=== PATIENT | male | born 1955 | race Caucasian/White ===

== ENCOUNTER 2018-08-18 18:23 | Inpatient (IN) | payer MEDICARE, BC ==
[~2018-08-18] VITALS: Ht 175.3 cm; Wt 65.4 kg
[2018-08-18 19:30] LABS: ALBUMIN 3.7 g/dL (3.4-5.0); CALCIUM 9.4 mg/dL (8.5-10.1); CREATININE 1.2 mg/dL (0.7-1.3); DIRECT BILIRUBIN 0.1 mg/dL (0.0-0.2); GFR 61.6; POTASSIUM 3.9 mmol/L (3.5-5.1); TOTAL BILIRUBIN 0.4 mg/dL (0.2-1.0); TOTAL PROTEIN 6.8 g/dL (6.4-8.2)
[2018-08-18 19:33] LABS: BASO # 0.1 x10^3/uL (0.0-0.2); BASO % 0 % (0-3); EOS # 0.3 x10^3/uL (0.0-0.7); EOS % 1 % (0-3); HEMATOCRIT 49.3 % (39.0-53.0); HEMOGLOBIN 16.7 g/dL (13.0-17.5); LYMPH # 41.3 x10^3/uL (1.0-4.8); LYMPH % 87 % (24-48); MEAN CORPUSCULAR HEMOGLOBIN 32 pg (25-35); MEAN CORPUSCULAR HGB CONC 34 g/dL (31-37); MEAN CORPUSCULAR VOLUME 94 fL (79-100); MONO # 0.8 x10^3/uL (0.0-1.1); MONO % 2 % (0-9); NEUT # 4.9 x10^3uL (1.8-7.7); NEUT % 10 % (31-73); PLATELET COUNT 143 x10^3/uL (140-400); RED BLOOD COUNT 5.24 x10^6/uL (4.30-5.70); RED CELL DISTRIBUTION WIDTH 15.3 % (11.5-14.5)
[2018-08-18 20:12] LABS: CLARITY,URINE HAZY; COLOR,URINE AMBER
[2018-08-18 20:13] LABS: BACTERIA,URINE 0 /HPF (0-FEW); BILIRUBIN,URINE NEG (NEG); GLUCOSE,URINE NEG (NEG); NITRITE,URINE NEG (NEG); RBC,URINE OCC /HPF (0-2); SQUAMOUS EPITHELIAL CELL,UR FEW /LPF; UROBILINOGEN,URINE 0.2 mg/dL (0.2 mg/dL); WBC,URINE 0 /HPF (0-4)
[2018-08-18 20:17] LABS: % ATYL 3 % (0-0); % LYMPHS 78 % (24-48); % MONOS 3 % (0-10); % SEGS 16 % (35-66)
[2018-08-18 20:25] LABS: ANISOCYTOSIS SLIGHT; PLT ESTIMATE ADEQUATE (ADEQUATE)
--- NOTE | 2018-08-18 21:33 | PHYS DOC ---
Past History Past Medical History: Bipolar, Dementia, Depression, Diabetes, GERD, High Cholesterol, Hypothyroid, Schizophrenia Past Surgical History: No Surgical History Alcohol Use: None Drug Use: None Adult General Chief Complaint Chief Complaint: PSYCH EVALUATION HPI HPI Patient is a 62-year-old male who presents from nursing facility for medical clearance. Patient has been accepted to [facility] and just needs blood work drawn for medical clearance. Patient currently denies any homicidal or suicidal ideations. He denies any chest pain or shortness of breath. Review of Systems Review of Systems Constitutional: Denies fever or chills [] Respiratory: Denies cough or shortness of breath [] Cardiovascular: No additional information not addressed in HPI [] GI: Denies abdominal pain, nausea, vomiting, bloody stools or diarrhea [] Neurologic: Denies headache, focal weakness or sensory changes [] All other systems were reviewed and found to be within normal limits, except as documented in this note. Allergies Allergies Allergies Coded Allergies Type Severity Reaction Last Updated Verified diclofenac Allergy Mild 08/18/18 Yes Physical Exam Physical Exam Constitutional: Well developed, well nourished, no acute distress, non-toxic appearance. [] HENT: Normocephalic, atraumatic, bilateral external ears normal, oropharynx moist, no oral exudates, nose normal. [] Eyes: PERRLA, EOMI, conjunctiva normal, no discharge. [] Neck: Normal range of motion, no tenderness, supple, no stridor. [] Cardiovascular: Regular rate and rhythm[] Lungs & Thorax: Bilateral breath sounds clear to auscultation [] Abdomen: Bowel sounds normal, soft, no tenderness. [] Skin: Warm, dry, no erythema, no rash. [] Extremities: No tenderness, no cyanosis, no clubbing, ROM intact, no edema. [] Neurologic: Alert and oriented X 3, no focal deficits noted. [] Current Patient Data Vital Signs Vital Signs Date Time Temp Pulse Resp B/P (MAP) Pulse Ox O2 Delivery O2 Flow Rate FiO2 08/18/18 18:56 98.2 84 18 97 Room Air Lab Results Laboratory Tests Test 08/18/18 18:44 08/18/18 19:47 White Blood Count 47.4 x10^3/uL (4.0-11.0) *H Red Blood Count 5.24 x10^6/uL (4.30-5.70) Hemoglobin 16.7 g/dL (13.0-17.5) Hematocrit 49.3 % (39.0-53.0) Mean Corpuscular Volume 94 fL (79-100) Mean Corpuscular Hemoglobin 32 pg (25-35) Mean Corpuscular Hemoglobin Concent 34 g/dL (31-37) Red Cell Distribution Width 15.3 % (11.5-14.5) H Platelet Count 143 x10^3/uL (140-400) Neutrophils (%) (Auto) 10 % (31-73) L Lymphocytes (%) (Auto) 87 % (24-48) H Monocytes (%) (Auto) 2 % (0-9) Eosinophils (%) (Auto) 1 % (0-3) Basophils (%) (Auto) 0 % (0-3) Neutrophils # (Auto) 4.9 x10^3uL (1.8-7.7) Lymphocytes # (Auto) 41.3 x10^3/uL (1.0-4.8) H Monocytes # (Auto) 0.8 x10^3/uL (0.0-1.1) Eosinophils # (Auto) 0.3 x10^3/uL (0.0-0.7) Basophils # (Auto) 0.1 x10^3/uL (0.0-0.2) Segmented Neutrophils % 16 % (35-66) L Lymphocytes % 78 % (24-48) H Atypical Lymphocytes % (Manual) 3 % (0-0) H Monocytes % 3 % (0-10) Platelet Estimate Adequate (ADEQUATE) Anisocytosis Slight Sodium Level 144 mmol/L (136-145) Potassium Level 3.9 mmol/L (3.5-5.1) Chloride Level 104 mmol/L (98-107) Carbon Dioxide Level 32 mmol/L (21-32) Anion Gap 8 (6-14) Blood Urea Nitrogen 18 mg/dL (8-26) Creatinine 1.2 mg/dL (0.7-1.3) Estimated GFR (Cockcroft-Gault) 61.6 Glucose Level 108 mg/dL (70-99) H Calcium Level 9.4 mg/dL (8.5-10.1) Total Bilirubin 0.4 mg/dL (0.2-1.0) Direct Bilirubin 0.1 mg/dL (0.0-0.2) Aspartate Amino Transferase (AST) 11 U/L (15-37) L Alanine Aminotransferase (ALT) 7 U/L (16-63) L Alkaline Phosphatase 74 U/L (46-116) Total Protein 6.8 g/dL (6.4-8.2) Albumin 3.7 g/dL (3.4-5.0) Ethyl Alcohol Level < 10 mg/dL (0-10) Urine Collection Type Unknown Urine Color Violet Urine Clarity Hazy Urine pH 6.0 Urine Specific [place] 1.015 Urine Protein Neg (NEG-TRACE) Urine Glucose (UA) Neg mg/dL (NEG) Urine Ketones (Stick) Neg mg/dL (NEG) Urine Blood Trace (NEG) Urine Nitrite Neg (NEG) Urine Bilirubin Neg (NEG) Urine Urobilinogen Dipstick 0.2 mg/dL (0.2 mg/dL) Urine Leukocyte Esterase Trace (NEG) Urine RBC Occ /HPF (0-2) Urine WBC 0 /HPF (0-4) Urine Squamous Epithelial Cells Few /LPF Urine Bacteria 0 /HPF (0-FEW) EKG EKG [] Radiology/Procedures Radiology/Procedures [] Course & Med Decision Making Course & Med Decision Making Pertinent Labs and Imaging studies reviewed. (See chart for details) [] Dragon Disclaimer Dragon Disclaimer This electronic medical record was generated, in whole or in part, using a voice recognition dictation system. Departure Departure: Impression: Primary Impression: Behavior disturbance Disposition: ADMITTED INPATIENT Admitting Physician: Other (Dr. Delvalle) Condition: STABLE Referrals: SHIKHA ROBERTSON DO (PCP) ARUN DE LOS SANTOS Jr., DO Aug 18, 2018 21:33
[2018-08-18 21:39] LABS: BARBITURATES NEG (NEG); BENZODIAZEPINES NEG (NEG); CANNABINOIDS NEG (NEG); COCAINE NEG (NEG); METHADONE NEG (NEG); OPIATES NEG (NEG); PHENCYCLIDINE NEG (NEG)
--- NOTE | 2018-08-18 21:39 | RAD ---
Indication:Elevated white blood count TECHNIQUE:Portable AP chest X-ray COMPARISON:None FINDINGS: Heart is normal in size. Patchy opacities are seen in the left lung base. Bilateral interstitial opacities. Blunting of the left costophrenic angle. No pneumothorax. Visualized bony thorax is within normal limits. IMPRESSION: Patchy opacities in the left lung base with trace pleural effusion may be secondary to pneumonia. Electronically signed by: Ziyad Fox DO (08/18/2018 9:36 PM) [facility]
[2018-08-18 21:40] LABS: AMPHETAMINE/METHAMPHETAMINE NEG (NEG)
[2018-08-18] MEDS ORDERED: MAG HYDROX/AL HYDROX/SIMETH 30 ML ORAL.SUSP PO PRN (23:15)
[2018-08-18] MEDS ORDERED: MAGNESIUM HYDROXIDE 2,400 MG/30 ML ORAL.SUSP. PO PRN (23:15)
[2018-08-18 23:18] VITALS: BP 117/84
[2018-08-18] MEDS ORDERED: ONDA4TAB12 PO (23:41)
[2018-08-18] MEDS ORDERED: IPRA3AMP29 NEB (23:41)
[2018-08-18] MEDS ORDERED: CETI10TA16 PO (23:41)
[2018-08-18] MEDS ORDERED: VITA200C7 PO (23:41)
[2018-08-18] MEDS ORDERED: COLE1TAB2 PO (23:41)
[2018-08-18] MEDS ORDERED: PYRI50CA PO (23:41)
[2018-08-18] MEDS ORDERED: FINA5TAB4 PO (23:41)
[2018-08-18] MEDS ORDERED: LEXAPRO5 MG PO (23:41)
[2018-08-18] MEDS ORDERED: ACET325T9 PO (23:41)
[2018-08-18] MEDS ORDERED: LOPE2CAP88 PO (23:41)
[2018-08-18] MEDS ORDERED: LEVO112T4 PO (23:41)
[2018-08-18] MEDS ORDERED: OMEP20TA8 PO (23:41)
[2018-08-18] MEDS ORDERED: SIMV40TA3 PO (23:41)
[2018-08-18] MEDS ORDERED: CARB1TAB2 PO (23:41)
[2018-08-18] MEDS ORDERED: TAMS0.4C97 PO (23:41)
[2018-08-18] MEDS ORDERED: GUAI237L83 PO (23:41)
[2018-08-18] MEDS ORDERED: LAMO150T2 PO (23:41)
[2018-08-18] MEDS ORDERED: OMEG-167 PO (23:41)
[2018-08-18] MEDS ORDERED: ALBU2.5V14 NEB (23:41)
[2018-08-18] MEDS ORDERED: MAGN400O7 PO (23:41)
[2018-08-18] MEDS ORDERED: ASCO500T3 PO (23:41)
[2018-08-18] MEDS ORDERED: ONDANSETRON ODT 4 MG TAB.RAPDIS PO PRN (23:45)
[2018-08-18] MEDS ORDERED: ALBUTEROL SULFATE 2.5 MG/3 ML NEBU. NEB PRN (23:45)
[2018-08-18] MEDS ORDERED: IPRATRPIUM/ALBUTEROL 0.5/2.5MG 3 ML NEBU. NEB PRN (23:45)
[2018-08-18] MEDS ORDERED: guaiFENesin DM 200MG/20MG 10 ML SYRUP PO PRN (23:45)
[2018-08-18] MEDS ORDERED: LOPERAMIDE 2 MG CAPSULE PO PRN (23:45)
[2018-08-19 05:31] VITALS: BP 125/83
[2018-08-19] MEDS: LEVOTHYROXINE 112 MCG TABLET PO SCH (05:59)
[2018-08-19 07:53] LABS: ALBUMIN 3.2 g/dL (3.4-5.0); ALBUMIN/GLOBULIN RATIO 1.2 (1.0-1.7); CALCIUM 8.9 mg/dL (8.5-10.1); CREATININE 1.1 mg/dL (0.7-1.3); GFR 68.1; MAGNESIUM 1.9 mg/dL (1.8-2.4); POTASSIUM 3.8 mmol/L (3.5-5.1); TOTAL BILIRUBIN 0.3 mg/dL (0.2-1.0); TOTAL PROTEIN 5.9 g/dL (6.4-8.2)
[2018-08-19] MEDS: PANTOPRAZOLE 40 MG TABLET. PO SCH (08:57)
[2018-08-19] MEDS: DIVALPROEX SODIUM 250 MG TABLET.DR. PO SCH (08:57)
[2018-08-19] MEDS: ASCORBIC ACID 500 MG TABLET PO SCH (08:57)
[2018-08-19] MEDS: TAMSULOSIN 0.4 MG CAP.ER.24H. PO SCH (08:57)
[2018-08-19] MEDS: FINASTERIDE 5 MG TABLET PO SCH (08:57)
[2018-08-19] MEDS: OMEGA-3 FATTY ACIDS/FISH OIL 1,000 MG CAPSULE. PO SCH (08:57)
[2018-08-19] MEDS: CITALOPRAM 10 MG TABLET. PO SCH (08:57)
[2018-08-19] MEDS: CETIRIZINE HCL 10 MG TABLET PO SCH (08:57)
[2018-08-19] MEDS: CARBIDOPA/LEVODOPA 25/100MG TABLET PO SCH ×3 (08:57→19:36)
[2018-08-19] MEDS ORDERED: lamoTRIgine 150 MG TABLET. PO SCH (09:00)
[2018-08-19] MEDS: lamoTRIgine 25 MG TABLET. PO SCH (09:26)
[2018-08-19] MEDS: VITAMIN E 200 UNIT CAPSULE. PO SCH (14:07)
[2018-08-19] MEDS: COLESTIPOL HCL 1 GM TABLET PO SCH ×2 (14:07→19:36)
[2018-08-19] MEDS: PYRIDOXINE 50 MG TABLET. PO SCH (14:07)
[2018-08-19 14:11] LABS: THYROID STIM HORMONE (TSH) 2.073 uIU/mL (0.358-3.740)
[2018-08-19 16:11] LABS: THYROXINE 7.7 ug/dL (4.5-12.0)
[2018-08-19] MEDS: CHOLECALCIFEROL (VITAMIN D3) 50,000 UNIT CAPSULE PO SCH (19:36)
[2018-08-19] MEDS: SIMVASTATIN 40 MG TABLET. PO SCH (19:36)
--- NOTE | 2018-08-19 22:33 | PDOC ---
Exam Note: Julian Note: Please also refer to the separate dictated note~for this date of service dictated separately. Discussed the patient with Nursing staff reviewed the chart.~Reviewed interim history and current functioning. Reviewed vital signs,~ Labs/ Radiology~and current medications noted below. Continue current treatment with the changes noted in the dictated addendum note Assessment: Vital Signs: Vital Signs Date Time Temp Pulse Resp B/P (MAP) Pulse Ox O2 Delivery O2 Flow Rate FiO2 08/19/18 05:31 97.1 61 20 125/83 (97) 92 Room Air Labs: Laboratory Tests Test 08/19/18 06:56 Sodium Level 146 mmol/L (136-145) H Potassium Level 3.8 mmol/L (3.5-5.1) Chloride Level 109 mmol/L (98-107) H Carbon Dioxide Level 29 mmol/L (21-32) Anion Gap 8 (6-14) Blood Urea Nitrogen 17 mg/dL (8-26) Creatinine 1.1 mg/dL (0.7-1.3) Estimated GFR (Cockcroft-Gault) 68.1 BUN/Creatinine Ratio 15 (6-20) Glucose Level 86 mg/dL (70-99) Calcium Level 8.9 mg/dL (8.5-10.1) Magnesium Level 1.9 mg/dL (1.8-2.4) Total Bilirubin 0.3 mg/dL (0.2-1.0) Aspartate Amino Transferase (AST) 9 U/L (15-37) L Alanine Aminotransferase (ALT) 17 U/L (16-63) Alkaline Phosphatase 59 U/L (46-116) Total Protein 5.9 g/dL (6.4-8.2) L Albumin 3.2 g/dL (3.4-5.0) L Albumin/Globulin Ratio 1.2 (1.0-1.7) Triglycerides Level 83 mg/dL (0-150) Cholesterol Level 142 mg/dL (0-200) LDL Cholesterol, Calculated 92 mg/dL (0-100) VLDL Cholesterol, Calculated 16 mg/dL (0-40) Non-HDL Cholesterol Calculated 108 mg/dL (0-129) HDL Cholesterol 34 mg/dL (40-60) L Cholesterol/HDL Ratio 4.0 Thyroid Stimulating Hormone (TSH) 2.073 uIU/mL (0.358-3.740) Current Medications: Meds: Current Medications Acetaminophen (Tylenol) 650 mg PRN Q6HRS PRN PO PAIN / TEMP; Start 08/18/18 at 23:15 Al Hydroxide/Mg Hydroxide (Mylanta Plus Xs) 15 ml PRN AFTMEALHC PRN PO DYSPEPSIA; Start 08/18/18 at 23:15 Magnesium Hydroxide (Milk Of Magnesia) 2,400 mg PRN QHS PRN PO CONSTIPATION; Start 08/18/18 at 23:15 Carbidopa/Levodopa (Sinemet 25/100) 1 tab TID PO Last administered on 08/19/18 19:36; Start 08/19/18 at 09:00 Lamotrigine (LaMICtal) 150 mg DAILY PO ; Start 08/19/18 at 09:00; Stop 08/19/18 at 09:14; Status DC Citalopram Hydrobromide (CeleXA) 10 mg DAILY PO Last administered on 08/19/18 08:57; Start 08/19/18 at 09:00 Ascorbic Acid (Vitamin C) 500 mg DAILY PO Last administered on 08/19/18 08:57; Start 08/19/18 at 09:00 Colestipol HCl (Colestid) 1 gm BID PO Last administered on 08/19/18 19:36; Start 08/19/18 at 09:00 Albuterol/ Ipratropium (Duoneb) 3 ml PRN TID PRN NEB SHORTNESS OF BREATH; Start 08/18/18 at 23:45 Levothyroxine Sodium (Synthroid) 112 mcg DAILY06 PO Last administered on 05:59; Start 08/19/18 at 06:00 Simvastatin (Zocor) 40 mg HS PO Last administered on 08/19/18 19:36; Start 08/19 at 21:00 Tamsulosin HCl (Flomax) 0.4 mg DAILY PO Last administered on 08/19/18 08:57; Start 08/19/18 at 09:00 Albuterol Sulfate (Ventolin) 2.5 mg PRN Q4HRS PRN NEB SHORTNESS OF BREATH; Start 08/18/18 at 23:45 Cetirizine HCl (ZyrTEC) 10 mg DAILY PO Last administered on 08/19/18 08:57; Start 08/19/18 at 09:00 Finasteride (Proscar) 5 mg DAILY PO Last administered on 08/19/18 08:57; Start 08/19/18 at 09:00 Guaifenesin (Robitussin Dm) 10 ml PRN Q4HRS PRN PO COUGH; Start 08/18/18 at 23: 45 Loperamide HCl (Imodium) 2 mg PRN Q6HRS PRN PO DIARRHEA; Start 08/18/18 at 23:45 Fish Oil (Fish Oil) 1,000 mg DAILY PO Last administered on 08/19/18 08:57; Start 08/19/18 at 09:00 Pantoprazole Sodium (Protonix) 40 mg DAILYAC PO Last administered on 08/19/18 08:57; Start 08/19/18 at 07:30 Ondansetron HCl (Zofran Odt) 4 mg PRN Q6HRS PRN PO NAUSEA/VOMITING; Start at 23:45 Pyridoxine HCl (Vitamin B-6) 50 mg DAILY PO Last administered on 08/19/18 14:07 ; Start 08/19/18 at 09:00 Vitamin E 200 unit DAILY PO Last administered on 08/19/18 14:07; Start 08/19/18 at 09:00 Divalproex Sodium (Depakote) 1,500 mg DAILY PO Last administered on 08/19/18 08 :57; Start 08/19/18 at 09:00 Lamotrigine (LaMICtal) 100 mg DAILY PO ; Start 08/20/18 at 09:00 Lamotrigine (LaMICtal) 50 mg DAILY PO Last administered on 08/19/18 09:26; Start 08/19/18 at 09:15 Vitamin D (Vitamin D3) 50,000 unit WEEKLY PO Last administered on 08/19/18 19: 36; Start 08/19/18 at 19:30 Active Scripts Active Reported Vitamin E (Vitamin E Acetate) 200 Unit Capsule 200 Unit PO DAILY Ascorbic Acid 500 Mg Tablet 500 Mg PO DAILY Vitamin B-6 (Pyridoxine Hcl) 50 Mg Capsule 50 Mg PO DAILY Tylenol (Acetaminophen) 325 Mg Tablet 650 Mg PO PRN Q4HRS PRN Flomax (Tamsulosin Hcl) 0.4 Mg Cap.er.24h 0.4 Mg PO DAILY Simvastatin 40 Mg Tablet 40 Mg PO HS Robitussin Cough-Chest Dm Liq (Guaifenesin/Dextromethorphan) 237 Ml Liquid 10 Ml PO PRN Q4HRS PRN Ondansetron Odt (Ondansetron) 4 Mg Tab.rapdis 4 Mg PO PRN Q6HRS PRN Omeprazole 20 Mg Tablet.dr 20 Mg PO DAILY Milk Of Magnesia (Magnesium Hydroxide) 400 Mg/5 Ml Oral.susp 400 Mg PO PRN DAILY PRN Lexapro (Escitalopram Oxalate) 5 Mg Tablet 5 Mg PO DAILY Levothyroxine Sodium 112 Mcg Tablet 112 Mcg PO DAILYAC Lamotrigine 150 Mg Tablet 150 Mg PO DAILY Duoneb 0.5-3(2.5) Mg/3 Ml (Albuterol/Ipratropium) 3 Ml Ampul.neb 3 Mg NEB PRN TID PRN Imodium A-D (Loperamide HCl) 2 Mg Capsule 2 Mg PO PRN Q6HRS PRN Fish Oil 1,200 mg Softgel ([place]-3S/Dha/Epa/Fish Oil) 1 Each Capsule.dr 1 Each PO DAILY Finasteride 5 Mg Tablet 5 Mg PO DAILY Colestipol Hcl 1 Gm Tablet 1 Gm PO BID Cetirizine Hcl 10 Mg Tablet 10 Mg PO DAILY Sinemet 25-100 Mg Tablet (Carbidopa/Levodopa) 1 Each Tablet 1 Each PO TID Albuterol Sulfate Conc Neb Soln (Albuterol Sulfate) 2.5 Mg/0.5 Ml Vial.neb 2.5 Mg NEB PRN Q4HRS PRN I have reviewed the current psychotropics carefully including drug interactions. Risk benefit ratio favors no change other than as noted in my dictated progress note. ALONDRA BARNES MD Aug 19, 2018 22:33
[2018-08-19 23:11] LABS: HEMOGLOBIN A1C 5.3 % (4.8-5.6)
[2018-08-20] MEDS: LEVOTHYROXINE 112 MCG TABLET PO SCH (05:31)
[2018-08-20 06:02] VITALS: BP 108/76
[2018-08-20] MEDS: ASCORBIC ACID 500 MG TABLET PO SCH (08:22)
[2018-08-20] MEDS: FINASTERIDE 5 MG TABLET PO SCH (08:22)
[2018-08-20] MEDS: VITAMIN E 200 UNIT CAPSULE. PO SCH (08:23)
[2018-08-20] MEDS: PANTOPRAZOLE 40 MG TABLET. PO SCH (08:23)
[2018-08-20] MEDS: CARBIDOPA/LEVODOPA 25/100MG TABLET PO SCH ×3 (08:23→19:01)
[2018-08-20] MEDS: DIVALPROEX SODIUM 250 MG TABLET.DR. PO SCH (08:23)
[2018-08-20] MEDS: CETIRIZINE HCL 10 MG TABLET PO SCH (08:23)
[2018-08-20] MEDS: lamoTRIgine 25 MG TABLET. PO SCH (08:23)
[2018-08-20] MEDS: OMEGA-3 FATTY ACIDS/FISH OIL 1,000 MG CAPSULE. PO SCH (08:23)
[2018-08-20] MEDS: TAMSULOSIN 0.4 MG CAP.ER.24H. PO SCH (08:23)
[2018-08-20] MEDS: CITALOPRAM 10 MG TABLET. PO SCH (08:23)
[2018-08-20] MEDS: PYRIDOXINE 50 MG TABLET. PO SCH (08:28)
[2018-08-20] MEDS: COLESTIPOL HCL 1 GM TABLET PO SCH ×2 (08:28→19:01)
[2018-08-20] MEDS: lamoTRIgine 100 MG TABLET. PO SCH (08:28)
[2018-08-20 16:48] VITALS: BP 117/79
[2018-08-20] MEDS: SIMVASTATIN 40 MG TABLET. PO SCH (19:01)
[2018-08-21] MEDS: LEVOTHYROXINE 112 MCG TABLET PO SCH (05:37)
[2018-08-21 05:39] VITALS: BP 120/64
[2018-08-21] MEDS: OMEGA-3 FATTY ACIDS/FISH OIL 1,000 MG CAPSULE. PO SCH (07:38)
[2018-08-21] MEDS: ASCORBIC ACID 500 MG TABLET PO SCH (07:38)
[2018-08-21] MEDS: lamoTRIgine 25 MG TABLET. PO SCH (07:38)
[2018-08-21] MEDS: CARBIDOPA/LEVODOPA 25/100MG TABLET PO SCH ×3 (07:38→19:55)
[2018-08-21] MEDS: TAMSULOSIN 0.4 MG CAP.ER.24H. PO SCH (07:39)
[2018-08-21] MEDS: DIVALPROEX SODIUM 250 MG TABLET.DR. PO SCH (07:39)
[2018-08-21] MEDS: PANTOPRAZOLE 40 MG TABLET. PO SCH (07:39)
[2018-08-21] MEDS: CITALOPRAM 10 MG TABLET. PO SCH (07:39)
[2018-08-21] MEDS: lamoTRIgine 100 MG TABLET. PO SCH (07:39)
[2018-08-21] MEDS: CETIRIZINE HCL 10 MG TABLET PO SCH (07:39)
[2018-08-21] MEDS: COLESTIPOL HCL 1 GM TABLET PO SCH ×2 (07:39→19:57)
[2018-08-21] MEDS: FINASTERIDE 5 MG TABLET PO SCH (07:39)
[2018-08-21] MEDS: VITAMIN E 200 UNIT CAPSULE. PO SCH ×2 (07:40→19:55)
[2018-08-21] MEDS: PYRIDOXINE 50 MG TABLET. PO SCH (07:40)
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
--- NOTE | 2018-08-21 09:42 | PDOC ---
Exam Note: Julian Note: Late entry for DOS 08/20/2018. Please also refer to the separate dictated note~ for this date of service dictated separately.~Patient seen individually. Discussed the patient with Nursing staff reviewed the chart.~Reviewed interim history and current functioning. Reviewed vital signs,~Labs/ Radiology~and current medications noted below. Continue current treatment with the changes noted in the dictated addendum note Assessment: Vital Signs: VS - Last 72 Hours, by Label Date Time Temp Pulse Resp B/P (MAP) Pulse Ox O2 Delivery O2 Flow Rate FiO2 08/21/18 05:39 98.5 71 18 120/64 (82) 95 08/20/18 16:48 98.4 93 18 117/79 (92) 93 Room Air 08/20/18 06:02 98.6 70 18 108/76 (87) 98 08/19/18 05:31 97.1 61 20 125/83 (97) 92 Room Air 08/18/18 23:18 98.1 65 18 117/84 (95) 94 Room Air 08/18/18 18:56 98.2 84 18 97 Room Air Vital Signs Date Time Temp Pulse Resp B/P (MAP) Pulse Ox O2 Delivery O2 Flow Rate FiO2 08/21/18 05:39 98.5 71 18 120/64 (82) 95 08/20/18 16:48 Room Air I&O Intake and Output 08/21/18 07:00 Intake Total 1440 ml Balance 1440 ml Intake Oral 1440 ml # Voids 2 # Bowel Movements 2 Current Medications: Meds: Current Medications Acetaminophen (Tylenol) 650 mg PRN Q6HRS PRN PO PAIN / TEMP; Start 08/18/18 at 23:15 Al Hydroxide/Mg Hydroxide (Mylanta Plus Xs) 15 ml PRN AFTMEALHC PRN PO DYSPEPSIA; Start 08/18/18 at 23:15 Magnesium Hydroxide (Milk Of Magnesia) 2,400 mg PRN QHS PRN PO CONSTIPATION; Start 08/18/18 at 23:15 Carbidopa/Levodopa (Sinemet 25/100) 1 tab TID PO Last administered on 08/21/18at 07:38; Start 08/19/18 at 09:00 Lamotrigine (LaMICtal) 150 mg DAILY PO ; Start 08/19/18 at 09:00; Stop 08/19/18 at 09:14; Status DC Citalopram Hydrobromide (CeleXA) 10 mg DAILY PO Last administered on 08/21/18 07:39; Start 08/19/18 at 09:00 Ascorbic Acid (Vitamin C) 500 mg DAILY PO Last administered on 08/21/18 07:38; Start 08/19/18 at 09:00 Colestipol HCl (Colestid) 1 gm BID PO Last administered on 08/21/18 07:39; Start 08/19/18 at 09:00 Albuterol/ Ipratropium (Duoneb) 3 ml PRN TID PRN NEB SHORTNESS OF BREATH; Start 08/18/18 at 23:45 Levothyroxine Sodium (Synthroid) 112 mcg DAILY06 PO Last administered on 05:37; Start 08/19/18 at 06:00 Simvastatin (Zocor) 40 mg HS PO Last administered on 08/20/18 19:01; Start 08/19 at 21:00 Tamsulosin HCl (Flomax) 0.4 mg DAILY PO Last administered on 08/21/18 07:39; Start 08/19/18 at 09:00 Albuterol Sulfate (Ventolin) 2.5 mg PRN Q4HRS PRN NEB SHORTNESS OF BREATH; Start 08/18/18 at 23:45 Cetirizine HCl (ZyrTEC) 10 mg DAILY PO Last administered on 08/21/18 07:39; Start 08/19/18 at 09:00 Finasteride (Proscar) 5 mg DAILY PO Last administered on 08/21/18 07:39; Start 08/19/18 at 09:00 Guaifenesin (Robitussin Dm) 10 ml PRN Q4HRS PRN PO COUGH; Start 08/18/18 at 23: 45 Loperamide HCl (Imodium) 2 mg PRN Q6HRS PRN PO DIARRHEA; Start 08/18/18 at 23:45 Fish Oil (Fish Oil) 1,000 mg DAILY PO Last administered on 08/21/18 07:38; Start 08/19/18 at 09:00 Pantoprazole Sodium (Protonix) 40 mg DAILYAC PO Last administered on 08/21/18 07:39; Start 08/19/18 at 07:30 Ondansetron HCl (Zofran Odt) 4 mg PRN Q6HRS PRN PO NAUSEA/VOMITING; Start at 23:45 Pyridoxine HCl (Vitamin B-6) 50 mg DAILY PO Last administered on 08/21/18 07:40 ; Start 08/19/18 at 09:00 Vitamin E 200 unit DAILY PO Last administered on 08/21/18 07:40; Start 08/19/18 at 09:00 Divalproex Sodium (Depakote) 1,500 mg DAILY PO Last administered on 08/21/18 07 :39; Start 08/19/18 at 09:00 Lamotrigine (LaMICtal) 100 mg DAILY PO Last administered on 08/21/18 07:39; Start 08/20/18 at 09:00 Lamotrigine (LaMICtal) 50 mg DAILY PO Last administered on 08/21/18 07:38; Start 08/19/18 at 09:15 Vitamin D (Vitamin D3) 50,000 unit WEEKLY PO Last administered on 08/19/18at 19: 36; Start 08/19/18 at 19:30 Active Scripts Active Reported Vitamin E (Vitamin E Acetate) 200 Unit Capsule 200 Unit PO DAILY Ascorbic Acid 500 Mg Tablet 500 Mg PO DAILY Vitamin B-6 (Pyridoxine Hcl) 50 Mg Capsule 50 Mg PO DAILY Tylenol (Acetaminophen) 325 Mg Tablet 650 Mg PO PRN Q4HRS PRN Flomax (Tamsulosin Hcl) 0.4 Mg Cap.er.24h 0.4 Mg PO DAILY Simvastatin 40 Mg Tablet 40 Mg PO HS Robitussin Cough-Chest Dm Liq (Guaifenesin/Dextromethorphan) 237 Ml Liquid 10 Ml PO PRN Q4HRS PRN Ondansetron Odt (Ondansetron) 4 Mg Tab.rapdis 4 Mg PO PRN Q6HRS PRN Omeprazole 20 Mg Tablet.dr 20 Mg PO DAILY Milk Of Magnesia (Magnesium Hydroxide) 400 Mg/5 Ml Oral.susp 400 Mg PO PRN DAILY PRN Lexapro (Escitalopram Oxalate) 5 Mg Tablet 5 Mg PO DAILY Levothyroxine Sodium 112 Mcg Tablet 112 Mcg PO DAILYAC Lamotrigine 150 Mg Tablet 150 Mg PO DAILY Duoneb 0.5-3(2.5) Mg/3 Ml (Albuterol/Ipratropium) 3 Ml Ampul.neb 3 Mg NEB PRN TID PRN Imodium A-D (Loperamide HCl) 2 Mg Capsule 2 Mg PO PRN Q6HRS PRN Fish Oil 1,200 mg Softgel ([place]-3S/Dha/Epa/Fish Oil) 1 Each Capsule.dr 1 Each PO DAILY Finasteride 5 Mg Tablet 5 Mg PO DAILY Colestipol Hcl 1 Gm Tablet 1 Gm PO BID Cetirizine Hcl 10 Mg Tablet 10 Mg PO DAILY Sinemet 25-100 Mg Tablet (Carbidopa/Levodopa) 1 Each Tablet 1 Each PO TID Albuterol Sulfate Conc Neb Soln (Albuterol Sulfate) 2.5 Mg/0.5 Ml Vial.neb 2.5 Mg NEB PRN Q4HRS PRN I have reviewed the current psychotropics carefully including drug interactions. Risk benefit ratio favors no change other than as noted in my dictated progress note. Diagnosis: Problems: (1) Anxiety disorder (2) Bipolar affective, mixed, sev w/ psych (3) Major depressive disorder, recurrent episode (4) Impulse control disorder (5) Lewy body dementia with behavioral disturbance ALONDRA BARNES MD Aug 21, 2018 09:42
[2018-08-21 16:34] VITALS: BP 148/87
[2018-08-21] MEDS: SIMVASTATIN 40 MG TABLET. PO SCH (19:54)
--- NOTE | 2018-08-21 22:51 | PDOC ---
Exam Note: Julian Note: Please also refer to the separate dictated note~for this date of service dictated separately.~Patient seen individually. Discussed the patient with Nursing staff reviewed the chart.~Reviewed interim history and current functioning. Reviewed vital signs,~Labs/ Radiology~and current medications noted below. Continue current treatment with the changes noted in the dictated addendum note Assessment: Vital Signs: Vital Signs Date Time Temp Pulse Resp B/P (MAP) Pulse Ox O2 Delivery O2 Flow Rate FiO2 08/21/18 16:34 97.4 87 20 148/87 (107) 99 Room Air I&O Intake and Output 08/21/18 07:00 Intake Total 1440 ml Balance 1440 ml Intake Oral 1440 ml # Voids 2 # Bowel Movements 2 Current Medications: Meds: Current Medications Acetaminophen (Tylenol) 650 mg PRN Q6HRS PRN PO PAIN / TEMP; Start 08/18/18 at 23:15 Al Hydroxide/Mg Hydroxide (Mylanta Plus Xs) 15 ml PRN AFTMEALHC PRN PO DYSPEPSIA; Start 08/18/18 at 23:15 Magnesium Hydroxide (Milk Of Magnesia) 2,400 mg PRN QHS PRN PO CONSTIPATION; Start 08/18/18 at 23:15 Carbidopa/Levodopa (Sinemet 25/100) 1 tab TID PO Last administered on 08/21/18at 19:55; Start 08/19/18 at 09:00 Lamotrigine (LaMICtal) 150 mg DAILY PO ; Start 08/19/18 at 09:00; Stop 08/19/18 at 09:14; Status DC Citalopram Hydrobromide (CeleXA) 10 mg DAILY PO Last administered on 08/21/18at 07:39; Start 08/19/18 at 09:00 Ascorbic Acid (Vitamin C) 500 mg DAILY PO Last administered on 08/21/18at 07:38; Start 08/19/18 at 09:00 Colestipol HCl (Colestid) 1 gm BID PO Last administered on 08/21/18at 19:57; Start 08/19/18 at 09:00 Albuterol/ Ipratropium (Duoneb) 3 ml PRN TID PRN NEB SHORTNESS OF BREATH; Start 08/18/18 at 23:45 Levothyroxine Sodium (Synthroid) 112 mcg DAILY06 PO Last administered on 05:37; Start 08/19/18 at 06:00 Simvastatin (Zocor) 40 mg HS PO Last administered on 08/21/18 19:54; Start 08/19 at 21:00 Tamsulosin HCl (Flomax) 0.4 mg DAILY PO Last administered on 08/21/18 07:39; Start 08/19/18 at 09:00 Albuterol Sulfate (Ventolin) 2.5 mg PRN Q4HRS PRN NEB SHORTNESS OF BREATH; Start 08/18/18 at 23:45 Cetirizine HCl (ZyrTEC) 10 mg DAILY PO Last administered on 08/21/18 07:39; Start 08/19/18 at 09:00 Finasteride (Proscar) 5 mg DAILY PO Last administered on 08/21/18 07:39; Start 08/19/18 at 09:00 Guaifenesin (Robitussin Dm) 10 ml PRN Q4HRS PRN PO COUGH; Start 08/18/18 at 23: 45 Loperamide HCl (Imodium) 2 mg PRN Q6HRS PRN PO DIARRHEA; Start 08/18/18 at 23:45 Fish Oil (Fish Oil) 1,000 mg DAILY PO Last administered on 08/21/18 07:38; Start 08/19/18 at 09:00 Pantoprazole Sodium (Protonix) 40 mg DAILYAC PO Last administered on 08/21/18 07:39; Start 08/19/18 at 07:30 Ondansetron HCl (Zofran Odt) 4 mg PRN Q6HRS PRN PO NAUSEA/VOMITING; Start at 23:45 Pyridoxine HCl (Vitamin B-6) 50 mg DAILY PO Last administered on 08/21/18 07:40 ; Start 08/19/18 at 09:00 Vitamin E 200 unit DAILY PO Last administered on 08/21/18 07:40; Start 08/19/18 at 09:00 Divalproex Sodium (Depakote) 1,500 mg DAILY PO Last administered on 08/21/18 07 :39; Start 08/19/18 at 09:00 Lamotrigine (LaMICtal) 100 mg DAILY PO Last administered on 4/7/19at 07:39; Start 08/20/18 at 09:00 Lamotrigine (LaMICtal) 50 mg DAILY PO Last administered on 08/21/18at 07:38; Start 08/19/18 at 09:15 Vitamin D (Vitamin D3) 50,000 unit WEEKLY PO Last administered on 08/19/18at 19: 36; Start 08/19/18 at 19:30 Active Scripts Active Reported Vitamin E (Vitamin E Acetate) 200 Unit Capsule 200 Unit PO DAILY Ascorbic Acid 500 Mg Tablet 500 Mg PO DAILY Vitamin B-6 (Pyridoxine Hcl) 50 Mg Capsule 50 Mg PO DAILY Tylenol (Acetaminophen) 325 Mg Tablet 650 Mg PO PRN Q4HRS PRN Flomax (Tamsulosin Hcl) 0.4 Mg Cap.er.24h 0.4 Mg PO DAILY Simvastatin 40 Mg Tablet 40 Mg PO HS Robitussin Cough-Chest Dm Liq (Guaifenesin/Dextromethorphan) 237 Ml Liquid 10 Ml PO PRN Q4HRS PRN Ondansetron Odt (Ondansetron) 4 Mg Tab.rapdis 4 Mg PO PRN Q6HRS PRN Omeprazole 20 Mg Tablet.dr 20 Mg PO DAILY Milk Of Magnesia (Magnesium Hydroxide) 400 Mg/5 Ml Oral.susp 400 Mg PO PRN DAILY PRN Lexapro (Escitalopram Oxalate) 5 Mg Tablet 5 Mg PO DAILY Levothyroxine Sodium 112 Mcg Tablet 112 Mcg PO DAILYAC Lamotrigine 150 Mg Tablet 150 Mg PO DAILY Duoneb 0.5-3(2.5) Mg/3 Ml (Albuterol/Ipratropium) 3 Ml Ampul.neb 3 Mg NEB PRN TID PRN Imodium A-D (Loperamide HCl) 2 Mg Capsule 2 Mg PO PRN Q6HRS PRN Fish Oil 1,200 mg Softgel ([place]-3S/Dha/Epa/Fish Oil) 1 Each Capsule.dr 1 Each PO DAILY Finasteride 5 Mg Tablet 5 Mg PO DAILY Colestipol Hcl 1 Gm Tablet 1 Gm PO BID Cetirizine Hcl 10 Mg Tablet 10 Mg PO DAILY Sinemet 25-100 Mg Tablet (Carbidopa/Levodopa) 1 Each Tablet 1 Each PO TID Albuterol Sulfate Conc Neb Soln (Albuterol Sulfate) 2.5 Mg/0.5 Ml Vial.neb 2.5 Mg NEB PRN Q4HRS PRN I have reviewed the current psychotropics carefully including drug interactions. Risk benefit ratio favors no change other than as noted in my dictated progress note. Diagnosis: Problems: (1) Anxiety disorder (2) Bipolar affective, mixed, sev w/ psych (3) Major depressive disorder, recurrent episode (4) Impulse control disorder (5) Lewy body dementia with behavioral disturbance ALONDRA BARNES MD Aug 21, 2018 22:51
[2018-08-22 05:32] VITALS: BP 114/77
[2018-08-22] MEDS: LEVOTHYROXINE 112 MCG TABLET PO SCH (05:33)
--- NOTE | 2018-08-22 06:55 | CONS ---
DATE OF CONSULTATION: 08/19/2018 REASON FOR CONSULTATION: Medical management. HISTORY OF PRESENT ILLNESS: The patient is a 62-year-old male patient, a resident at [facility], who was admitted on account of suicidal ideation, stating he would shoot himself with a gun or overdose, hit another resident, threatened resident, depressed, all this in a background of Lewy body dementia with delusion, depression, bipolar. PAST MEDICAL HISTORY: Significant for hypothyroidism, benign prostatic hypertrophy, Parkinson's disease, gastroesophageal reflux disease and hyperlipidemia. PAST PSYCHIATRIC HISTORY: Significant for bipolar disorder, dementia and depression. ALLERGIES: HE IS ALLERGIC TO DICLOFENAC. MEDICATIONS: He is currently on following medications: He is on cetirizine 10 mg once a day, ipratropium bromide, albuterol sulfate for DuoNeb in 3 mL by nebulizer 3 times a day, albuterol sulfate 2.5 mg in 0.5 mL via nebulizer every 4 hours, Flomax 0.4 mg once a day, colestipol 1 gram p.o. b.i.d., simvastatin 40 mg at bedtime, omega-3 1200 mg p.o. daily, acetaminophen 650 mg every 4 hours, lamotrigine 150 mg daily, escitalopram oxalate 5 mg daily, carbidopa/levodopa for Sinemet 25/100 p.o. t.i.d. He is on Robitussin-DM 10 mL every 4 hours, loperamide 2 mg every 6 hours, milk of magnesia 30 mL p.o. daily p.r.n. for constipation, ondansetron 4 mg every 6 hours, omeprazole 20 mg once a day, levothyroxine sodium 112 mcg once a day, pyridoxine 50 mg once a day, ascorbic acid 500 mg once a day, vitamin E 200 units p.o. daily, finasteride 5 mg daily. FAMILY HISTORY: Positive for premature coronary artery disease in his father's side. SOCIAL HISTORY: He is single, never , has no children. He does not smoke or drink alcohol. 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 REVIEW OF SYSTEMS: As per history of present illness. PHYSICAL EXAMINATION GENERAL: When I examined him, he looked well and was clearly in no apparent respiratory distress. No pallor, jaundice, cyanosis, or thyromegaly. No jugular venous distension. No lower limb edema. VITAL SIGNS: His heart rate was 61, blood pressure was 125/83, temperature was 97.1, respiratory rate 20, and oxygen saturation was 92%. HEAD, EYES, EARS, NOSE AND THROAT: Showed normocephalic, atraumatic. NECK: Supple. HEART: Showed normal first and second heart sounds. No gallop, murmur. CHEST: Clear to auscultation. No crepitation or rhonchi. ABDOMEN: Distended, soft, nontender. NEUROLOGIC: He is awake, alert, responding appropriately. All cranial nerves intact. EXTREMITIES: He moves extremities without difficulty. He has hammertoes. He is mostly wheelchair bound. LABORATORY DATA: His lab work showed white cell count 47,400, hemoglobin 16.7, hematocrit 49.3, MCV 94 and platelet count of 143,000 with a manual differential showed 10% polymorphs, 87% lymphocytes and 2% monocytes. His chemistry showed a serum sodium of 144, potassium 3.9, chloride 104, bicarbonate 32, anion gap of 8, BUN 18, creatinine 1.2, estimated GFR 61 mL/minute. His glucose was 108, calcium was 9.4. Total bilirubin, AST, ALT, alkaline phosphatase were normal. Total protein 6.8, albumin 3.7. His serum iron 47, TIBC 340, iron saturation 14%. His total bilirubin, AST, ALT, alkaline phosphatase were normal. Total protein 5.9, albumin was 3.2. His TSH, total T4 and total T3 are normal. His triglycerides were 83, total cholesterol was 142, LDL cholesterol was 92, VLDL was 16, and HDL cholesterol at 34 and ratio was 4. Urinalysis was essentially unremarkable and toxic screen was negative. His treponema pallidum antibody was nonreactive. He did have a chest x-ray, which showed patchy opacity in the left lung base with trace pleural effusion, may be secondary to pneumonia. ASSESSMENT AND PLAN: The patient is hemodynamically stable, has no fever. Denied any cough or chest pain. His lab work showed that he has 25-hydroxy vitamin D is low, so we will replenish that. I will contact the psychologist experimental/oncologist perhaps tomorrow to basically discuss the case, as he has markedly elevated lymphocyte indicating he probably has chronic lymphatic leukemia. Thank you, Dr. Livingston for allowing me to participate in the care of this patient. NAHOMI CHOI MD DR: Mike JOB#: [id number] / [id number]
[2018-08-22 08:23] LABS: BASO % 0 % (0-3); EOS # 0.4 x10^3/uL (0.0-0.7); EOS % 1 % (0-3); HEMATOCRIT 47.8 % (39.0-53.0); HEMOGLOBIN 15.7 g/dL (13.0-17.5); LYMPH # 33.2 x10^3/uL (1.0-4.8); LYMPH % 87 % (24-48); MEAN CORPUSCULAR HEMOGLOBIN 31 pg (25-35); MEAN CORPUSCULAR HGB CONC 33 g/dL (31-37); MEAN CORPUSCULAR VOLUME 95 fL (79-100); MONO # 0.9 x10^3/uL (0.0-1.1); MONO % 2 % (0-9); NEUT # 3.6 x10^3uL (1.8-7.7); NEUT % 9 % (31-73); PLATELET COUNT 133 x10^3/uL (140-400); RED BLOOD COUNT 5.02 x10^6/uL (4.30-5.70); RED CELL DISTRIBUTION WIDTH 15.1 % (11.5-14.5); WHITE BLOOD COUNT 38.1 x10^3/uL (4.0-11.0)
[2018-08-22 08:33] LABS: ALBUMIN 3.3 g/dL (3.4-5.0); ALBUMIN/GLOBULIN RATIO 1.1 (1.0-1.7); CALCIUM 9.2 mg/dL (8.5-10.1); CREATININE 1.1 mg/dL (0.7-1.3); GFR 68.1; POTASSIUM 4.5 mmol/L (3.5-5.1); TOTAL BILIRUBIN 0.4 mg/dL (0.2-1.0); TOTAL PROTEIN 6.2 g/dL (6.4-8.2)
[2018-08-22 08:54] LABS: VAL ACID 51 mcg/mL (50-100)
[2018-08-22] MEDS: PANTOPRAZOLE 40 MG TABLET. PO SCH (09:16)
[2018-08-22] MEDS: VITAMIN E 200 UNIT CAPSULE. PO SCH ×2 (09:16→20:34)
[2018-08-22] MEDS: CITALOPRAM 10 MG TABLET. PO SCH (09:16)
[2018-08-22] MEDS: DIVALPROEX SODIUM 250 MG TABLET.DR. PO SCH (09:16)
[2018-08-22] MEDS: OMEGA-3 FATTY ACIDS/FISH OIL 1,000 MG CAPSULE. PO SCH (09:16)
[2018-08-22] MEDS: COLESTIPOL HCL 1 GM TABLET PO SCH ×2 (09:16→20:34)
[2018-08-22] MEDS: TAMSULOSIN 0.4 MG CAP.ER.24H. PO SCH (09:17)
[2018-08-22] MEDS: lamoTRIgine 25 MG TABLET. PO SCH (09:17)
[2018-08-22] MEDS: CETIRIZINE HCL 10 MG TABLET PO SCH (09:17)
[2018-08-22] MEDS: PYRIDOXINE 50 MG TABLET. PO SCH (09:17)
[2018-08-22] MEDS: lamoTRIgine 100 MG TABLET. PO SCH (09:17)
[2018-08-22] MEDS: CARBIDOPA/LEVODOPA 25/100MG TABLET PO SCH ×3 (09:17→20:33)
[2018-08-22] MEDS: FINASTERIDE 5 MG TABLET PO SCH (09:17)
[2018-08-22] MEDS: ASCORBIC ACID 500 MG TABLET PO SCH (09:17)
[2018-08-22 10:45] LABS: % LYMPHS 91 % (24-48); % MONOS 2 % (0-10); % SEGS 7 % (35-66); PLT ESTIMATE DECREASED (ADEQUATE)
[2018-08-22 10:46] LABS: SMUDGE CELLS PRESENT
[2018-08-22 16:13] VITALS: BP 128/83
[2018-08-22] MEDS: LITHIUM CARBONATE 300 MG TABLET PO SCH (20:33)
[2018-08-22] MEDS: SIMVASTATIN 40 MG TABLET. PO SCH (20:33)
--- NOTE | 2018-08-22 22:39 | PDOC ---
Exam Note: Julian Note: Please also refer to the separate dictated note~for this date of service dictated separately.~Patient seen individually. Discussed the patient with Nursing staff reviewed the chart.~Reviewed interim history and current functioning. Reviewed vital signs,~Labs/ Radiology~and current medications noted below. Continue current treatment with the changes noted in the dictated addendum note Assessment: Vital Signs: Vital Signs Date Time Temp Pulse Resp B/P (MAP) Pulse Ox O2 Delivery O2 Flow Rate FiO2 08/22/18 16:13 98.3 91 20 128/83 (98) 93 08/21/18 16:34 Room Air I&O Intake and Output 08/22/18 06:59 Intake Total 1080 ml Balance 1080 ml Intake Oral 1080 ml Labs: Laboratory Tests Test 08/22/18 07:23 White Blood Count 38.1 x10^3/uL (4.0-11.0) H Red Blood Count 5.02 x10^6/uL (4.30-5.70) Hemoglobin 15.7 g/dL (13.0-17.5) Hematocrit 47.8 % (39.0-53.0) Mean Corpuscular Volume 95 fL (79-100) Mean Corpuscular Hemoglobin 31 pg (25-35) Mean Corpuscular Hemoglobin Concent 33 g/dL (31-37) Red Cell Distribution Width 15.1 % (11.5-14.5) H Platelet Count 133 x10^3/uL (140-400) L Neutrophils (%) (Auto) 9 % (31-73) L Lymphocytes (%) (Auto) 87 % (24-48) H Monocytes (%) (Auto) 2 % (0-9) Eosinophils (%) (Auto) 1 % (0-3) Basophils (%) (Auto) 0 % (0-3) Neutrophils # (Auto) 3.6 x10^3uL (1.8-7.7) Lymphocytes # (Auto) 33.2 x10^3/uL (1.0-4.8) H Monocytes # (Auto) 0.9 x10^3/uL (0.0-1.1) Eosinophils # (Auto) 0.4 x10^3/uL (0.0-0.7) Basophils # (Auto) 0.0 x10^3/uL (0.0-0.2) Segmented Neutrophils % 7 % (35-66) L Lymphocytes % 91 % (24-48) H Monocytes % 2 % (0-10) Smudge Cells Present Platelet Estimate Decreased (ADEQUATE) Sodium Level 148 mmol/L (136-145) H Potassium Level 4.5 mmol/L (3.5-5.1) Chloride Level 110 mmol/L (98-107) H Carbon Dioxide Level 31 mmol/L (21-32) Anion Gap 7 (6-14) Blood Urea Nitrogen 22 mg/dL (8-26) Creatinine 1.1 mg/dL (0.7-1.3) Estimated GFR (Cockcroft-Gault) 68.1 BUN/Creatinine Ratio 20 (6-20) Glucose Level 85 mg/dL (70-99) Calcium Level 9.2 mg/dL (8.5-10.1) Total Bilirubin 0.4 mg/dL (0.2-1.0) Aspartate Amino Transferase (AST) 10 U/L (15-37) L Alanine Aminotransferase (ALT) 17 U/L (16-63) Alkaline Phosphatase 63 U/L (46-116) Total Protein 6.2 g/dL (6.4-8.2) L Albumin 3.3 g/dL (3.4-5.0) L Albumin/Globulin Ratio 1.1 (1.0-1.7) Valproic Acid Level 51 mcg/mL (50-100) Valproic Acid Last Dose Date 08/21/18 Valproic Acid Last Dose Time 2100 Current Medications: Meds: Current Medications Acetaminophen (Tylenol) 650 mg PRN Q6HRS PRN PO PAIN / TEMP; Start 08/18/18 at 23:15 Al Hydroxide/Mg Hydroxide (Mylanta Plus Xs) 15 ml PRN AFTMEALHC PRN PO DYSPEPSIA; Start 08/18/18 at 23:15 Magnesium Hydroxide (Milk Of Magnesia) 2,400 mg PRN QHS PRN PO CONSTIPATION; Start 08/18/18 at 23:15 Carbidopa/Levodopa (Sinemet 25/100) 1 tab TID PO Last administered on 08/22/18at 20:33; Start 08/19/18 at 09:00 Lamotrigine (LaMICtal) 150 mg DAILY PO ; Start 08/19/18 at 09:00; Stop 08/19/18 at 09:14; Status DC Citalopram Hydrobromide (CeleXA) 10 mg DAILY PO Last administered on 08/22/18 09:16; Start 08/19/18 at 09:00 Ascorbic Acid (Vitamin C) 500 mg DAILY PO Last administered on 08/22/18 09:17; Start 08/19/18 at 09:00 Colestipol HCl (Colestid) 1 gm BID PO Last administered on 08/22/18 20:34; Start 08/19/18 at 09:00 Albuterol/ Ipratropium (Duoneb) 3 ml PRN TID PRN NEB SHORTNESS OF BREATH; Start 08/18/18 at 23:45 Levothyroxine Sodium (Synthroid) 112 mcg DAILY06 PO Last administered on 05:33; Start 08/19/18 at 06:00 Simvastatin (Zocor) 40 mg HS PO Last administered on 08/22/18 20:33; Start 08/19 at 21:00 Tamsulosin HCl (Flomax) 0.4 mg DAILY PO Last administered on 08/22/18 09:17; Start 08/19/18 at 09:00 Albuterol Sulfate (Ventolin) 2.5 mg PRN Q4HRS PRN NEB SHORTNESS OF BREATH; Start 08/18/18 at 23:45 Cetirizine HCl (ZyrTEC) 10 mg DAILY PO Last administered on 08/22/18 09:17; Start 08/19/18 at 09:00 Finasteride (Proscar) 5 mg DAILY PO Last administered on 08/22/18 09:17; Start 08/19/18 at 09:00 Guaifenesin (Robitussin Dm) 10 ml PRN Q4HRS PRN PO COUGH; Start 08/18/18 at 23: 45 Loperamide HCl (Imodium) 2 mg PRN Q6HRS PRN PO DIARRHEA; Start 08/18/18 at 23:45 Fish Oil (Fish Oil) 1,000 mg DAILY PO Last administered on 08/22/18 09:16; Start 08/19/18 at 09:00 Pantoprazole Sodium (Protonix) 40 mg DAILYAC PO Last administered on 08/22/18 09:16; Start 08/19/18 at 07:30 Ondansetron HCl (Zofran Odt) 4 mg PRN Q6HRS PRN PO NAUSEA/VOMITING; Start at 23:45 Pyridoxine HCl (Vitamin B-6) 50 mg DAILY PO Last administered on 08/22/18 09:17 ; Start 08/19/18 at 09:00 Vitamin E 200 unit DAILY PO Last administered on 08/22/18 09:16; Start 08/19/18 at 09:00 Divalproex Sodium (Depakote) 1,500 mg DAILY PO Last administered on 08/22/18 09 :16; Start 08/19/18 at 09:00 Lamotrigine (LaMICtal) 100 mg DAILY PO Last administered on 08/22/18 09:17; Start 08/20/18 at 09:00 Lamotrigine (LaMICtal) 50 mg DAILY PO Last administered on 08/22/18 09:17; Start 08/19/18 at 09:15 Vitamin D (Vitamin D3) 50,000 unit WEEKLY PO Last administered on 08/19/18 19: 36; Start 08/19/18 at 19:30 [place] Carbonate 300 mg HS PO Last administered on 08/22/18at 20:33; Start at 21:00 Active Scripts Active Reported Vitamin E (Vitamin E Acetate) 200 Unit Capsule 200 Unit PO DAILY Ascorbic Acid 500 Mg Tablet 500 Mg PO DAILY Vitamin B-6 (Pyridoxine Hcl) 50 Mg Capsule 50 Mg PO DAILY Tylenol (Acetaminophen) 325 Mg Tablet 650 Mg PO PRN Q4HRS PRN Flomax (Tamsulosin Hcl) 0.4 Mg Cap.er.24h 0.4 Mg PO DAILY Simvastatin 40 Mg Tablet 40 Mg PO HS Robitussin Cough-Chest Dm Liq (Guaifenesin/Dextromethorphan) 237 Ml Liquid 10 Ml PO PRN Q4HRS PRN Ondansetron Odt (Ondansetron) 4 Mg Tab.rapdis 4 Mg PO PRN Q6HRS PRN Omeprazole 20 Mg Tablet.dr 20 Mg PO DAILY Milk Of Magnesia (Magnesium Hydroxide) 400 Mg/5 Ml Oral.susp 400 Mg PO PRN DAILY PRN Lexapro (Escitalopram Oxalate) 5 Mg Tablet 5 Mg PO DAILY Levothyroxine Sodium 112 Mcg Tablet 112 Mcg PO DAILYAC Lamotrigine 150 Mg Tablet 150 Mg PO DAILY Duoneb 0.5-3(2.5) Mg/3 Ml (Albuterol/Ipratropium) 3 Ml Ampul.neb 3 Mg NEB PRN TID PRN Imodium A-D (Loperamide HCl) 2 Mg Capsule 2 Mg PO PRN Q6HRS PRN Fish Oil 1,200 mg Softgel ([place]-3S/Dha/Epa/Fish Oil) 1 Each Capsule.dr 1 Each PO DAILY Finasteride 5 Mg Tablet 5 Mg PO DAILY Colestipol Hcl 1 Gm Tablet 1 Gm PO BID Cetirizine Hcl 10 Mg Tablet 10 Mg PO DAILY Sinemet 25-100 Mg Tablet (Carbidopa/Levodopa) 1 Each Tablet 1 Each PO TID Albuterol Sulfate Conc Neb Soln (Albuterol Sulfate) 2.5 Mg/0.5 Ml Vial.neb 2.5 Mg NEB PRN Q4HRS PRN I have reviewed the current psychotropics carefully including drug interactions. Risk benefit ratio favors no change other than as noted in my dictated progress note. Diagnosis: Problems: (1) Anxiety disorder (2) Bipolar affective, mixed, sev w/ psych (3) Major depressive disorder, recurrent episode (4) Impulse control disorder (5) Lewy body dementia with behavioral disturbance ALONDRA BARNES MD Aug 22, 2018 22:39
--- NOTE | 2018-08-23 05:56 | PN ---
DATE: 08/20/2018 PSYCHIATRIC PROGRESS NOTE This late entry for 08/20/2018 covers elements not covered in my initial note. SUBJECTIVE: I met with the patient in the evening. Overall, the patient remains somewhat anxious at times, impulsive, but not aggressive. He admits to feeling depressed at times. We discussed at some length his past treatments and he feels he did best on lithium and is unsure why this was stopped. REVIEW OF SYSTEMS: Ambulation impaired, in wheelchair. No CV, , pulmonary, eye system symptoms on review. MENTAL STATUS EXAM: Oriented to himself and situation. Speech is coherent, abstraction fair, computation impaired, language function intact, attention span short. Mood and affect remains somewhat anxious, labile at times. LABORATORY DATA: Reviewed. IMPRESSION: Bipolar 1 disorder, mixed with psychotic features, Lewy body dementia, early anxiety disorder, unspecified. PLAN: Continue current psychotropics. We will inquire from the family about why the lithium was discontinued and use this further for mood stabilization along with Depakote. MAN Ling BARNES MD DR: MANISH/jaleesa JOB#: [id number] / [id number]
--- NOTE | 2018-08-23 05:58 | PN ---
DATE: 08/21/2018 PSYCHIATRIC PROGRESS NOTE This late entry for 08/21/2018 covers elements not covered in my initial note. SUBJECTIVE: I met with the patient in the evening. The patient slept 7-1/2 hours previous night. He remains somewhat impulsive, sexually inappropriate at times, but redirects. REVIEW OF SYSTEMS: Ambulation impaired, in wheelchair. No CV, , pulmonary, eye system symptoms on review. MENTAL STATUS EXAM: The patient is reasonably oriented. Speech is coherent, has some latency. Abstraction fair, computation impaired, language function intact, attention span short. Mood and affect somewhat anxious, labile at times. LABORATORY DATA: Reviewed. IMPRESSION: Unchanged from initial note. PLAN: No change from initial note. MAN Ling BARNES MD DR: MANISH/jaleesa JOB#: [id number] / [id number]
[2018-08-23 06:01] VITALS: BP 146/91
[2018-08-23] MEDS: LEVOTHYROXINE 112 MCG TABLET PO SCH (06:11)
[2018-08-23] MEDS: OMEGA-3 FATTY ACIDS/FISH OIL 1,000 MG CAPSULE. PO SCH (08:53)
[2018-08-23] MEDS: PANTOPRAZOLE 40 MG TABLET. PO SCH (08:53)
[2018-08-23] MEDS: TAMSULOSIN 0.4 MG CAP.ER.24H. PO SCH (08:54)
[2018-08-23] MEDS: CITALOPRAM 10 MG TABLET. PO SCH (08:54)
[2018-08-23] MEDS: DIVALPROEX SODIUM 250 MG TABLET.DR. PO SCH (08:54)
[2018-08-23] MEDS: CARBIDOPA/LEVODOPA 25/100MG TABLET PO SCH ×3 (08:55→20:44)
[2018-08-23] MEDS: lamoTRIgine 25 MG TABLET. PO SCH (08:55)
[2018-08-23] MEDS: lamoTRIgine 100 MG TABLET. PO SCH (08:55)
[2018-08-23] MEDS: CETIRIZINE HCL 10 MG TABLET PO SCH (08:55)
[2018-08-23] MEDS: FINASTERIDE 5 MG TABLET PO SCH (08:55)
[2018-08-23] MEDS: ASCORBIC ACID 500 MG TABLET PO SCH (08:55)
[2018-08-23] MEDS: COLESTIPOL HCL 1 GM TABLET PO SCH ×2 (08:58→20:46)
[2018-08-23] MEDS: VITAMIN E 200 UNIT CAPSULE. PO SCH (08:58)
[2018-08-23] MEDS: PYRIDOXINE 50 MG TABLET. PO SCH (08:58)
[2018-08-23 16:10] VITALS: BP 136/89
[2018-08-23] MEDS: LITHIUM CARBONATE 300 MG TABLET PO SCH (20:44)
[2018-08-23] MEDS: SIMVASTATIN 40 MG TABLET. PO SCH (20:44)
--- NOTE | 2018-08-23 22:28 | PDOC ---
Exam Note: Julian Note: Please also refer to the separate dictated note~for this date of service dictated separately.~Patient seen individually. Discussed the patient with Nursing staff reviewed the chart.~Reviewed interim history and current functioning. Reviewed vital signs,~Labs/ Radiology~and current medications noted below. Continue current treatment with the changes noted in the dictated addendum note Assessment: Vital Signs: Vital Signs Date Time Temp Pulse Resp B/P (MAP) Pulse Ox O2 Delivery O2 Flow Rate FiO2 08/23/18 16:10 98.0 89 19 136/89 (105) 93 08/21/18 16:34 Room Air I&O Intake and Output 08/23/18 06:59 Intake Total 920 ml Balance 920 ml Intake Oral 920 ml # Bowel Movements 2 Labs: Laboratory Tests Test 08/23/18 07:48 Glucose (Fingerstick) 91 mg/dL (70-99) Current Medications: Meds: Current Medications Acetaminophen (Tylenol) 650 mg PRN Q6HRS PRN PO PAIN / TEMP; Start 08/18/18 at 23:15 Al Hydroxide/Mg Hydroxide (Mylanta Plus Xs) 15 ml PRN AFTMEALHC PRN PO DYSPEPSIA; Start 08/18/18 at 23:15 Magnesium Hydroxide (Milk Of Magnesia) 2,400 mg PRN QHS PRN PO CONSTIPATION; Start 08/18/18 at 23:15 Carbidopa/Levodopa (Sinemet 25/100) 1 tab TID PO Last administered on 08/23/18at 20:44; Start 08/19/18 at 09:00 Lamotrigine (LaMICtal) 150 mg DAILY PO ; Start 08/19/18 at 09:00; Stop 08/19/18 at 09:14; Status DC Citalopram Hydrobromide (CeleXA) 10 mg DAILY PO Last administered on 08/23/18at 08:54; Start 08/19/18 at 09:00 Ascorbic Acid (Vitamin C) 500 mg DAILY PO Last administered on 08/23/18at 08:55; Start 08/19/18 at 09:00 Colestipol HCl (Colestid) 1 gm BID PO Last administered on 08/23/18at 20:46; Start 08/19/18 at 09:00 Albuterol/ Ipratropium (Duoneb) 3 ml PRN TID PRN NEB SHORTNESS OF BREATH; Start 08/18/18 at 23:45 Levothyroxine Sodium (Synthroid) 112 mcg DAILY06 PO Last administered on 06:11; Start 08/19/18 at 06:00 Simvastatin (Zocor) 40 mg HS PO Last administered on 08/23/18 20:44; Start 08/19 at 21:00 Tamsulosin HCl (Flomax) 0.4 mg DAILY PO Last administered on 08/23/18 08:54; Start 08/19/18 at 09:00 Albuterol Sulfate (Ventolin) 2.5 mg PRN Q4HRS PRN NEB SHORTNESS OF BREATH; Start 08/18/18 at 23:45 Cetirizine HCl (ZyrTEC) 10 mg DAILY PO Last administered on 08/23/18 08:55; Start 08/19/18 at 09:00 Finasteride (Proscar) 5 mg DAILY PO Last administered on 08/23/18 08:55; Start 08/19/18 at 09:00 Guaifenesin (Robitussin Dm) 10 ml PRN Q4HRS PRN PO COUGH; Start 08/18/18 at 23: 45 Loperamide HCl (Imodium) 2 mg PRN Q6HRS PRN PO DIARRHEA; Start 08/18/18 at 23:45 Fish Oil (Fish Oil) 1,000 mg DAILY PO Last administered on 08/23/18 08:53; Start 08/19/18 at 09:00 Pantoprazole Sodium (Protonix) 40 mg DAILYAC PO Last administered on 08/23/18 08:53; Start 08/19/18 at 07:30 Ondansetron HCl (Zofran Odt) 4 mg PRN Q6HRS PRN PO NAUSEA/VOMITING; Start at 23:45 Pyridoxine HCl (Vitamin B-6) 50 mg DAILY PO Last administered on 08/23/18 08:58 ; Start 08/19/18 at 09:00 Vitamin E 200 unit DAILY PO Last administered on 08/23/18 08:58; Start 08/19/18 at 09:00 Divalproex Sodium (Depakote) 1,500 mg DAILY PO Last administered on 4/9/19at 08 :54; Start 08/19/18 at 09:00 Lamotrigine (LaMICtal) 100 mg DAILY PO Last administered on 08/23/18 08:55; Start 08/20/18 at 09:00 Lamotrigine (LaMICtal) 50 mg DAILY PO Last administered on 08/23/18 08:55; Start 08/19/18 at 09:15 Vitamin D (Vitamin D3) 50,000 unit WEEKLY PO Last administered on 08/19/18 19: 36; Start 08/19/18 at 19:30 [place] Carbonate 300 mg HS PO Last administered on 08/23/18at 20:44; Start at 21:00 Active Scripts Active Reported Vitamin E (Vitamin E Acetate) 200 Unit Capsule 200 Unit PO DAILY Ascorbic Acid 500 Mg Tablet 500 Mg PO DAILY Vitamin B-6 (Pyridoxine Hcl) 50 Mg Capsule 50 Mg PO DAILY Tylenol (Acetaminophen) 325 Mg Tablet 650 Mg PO PRN Q4HRS PRN Flomax (Tamsulosin Hcl) 0.4 Mg Cap.er.24h 0.4 Mg PO DAILY Simvastatin 40 Mg Tablet 40 Mg PO HS Robitussin Cough-Chest Dm Liq (Guaifenesin/Dextromethorphan) 237 Ml Liquid 10 Ml PO PRN Q4HRS PRN Ondansetron Odt (Ondansetron) 4 Mg Tab.rapdis 4 Mg PO PRN Q6HRS PRN Omeprazole 20 Mg Tablet.dr 20 Mg PO DAILY Milk Of Magnesia (Magnesium Hydroxide) 400 Mg/5 Ml Oral.susp 400 Mg PO PRN DAILY PRN Lexapro (Escitalopram Oxalate) 5 Mg Tablet 5 Mg PO DAILY Levothyroxine Sodium 112 Mcg Tablet 112 Mcg PO DAILYAC Lamotrigine 150 Mg Tablet 150 Mg PO DAILY Duoneb 0.5-3(2.5) Mg/3 Ml (Albuterol/Ipratropium) 3 Ml Ampul.neb 3 Mg NEB PRN TID PRN Imodium A-D (Loperamide HCl) 2 Mg Capsule 2 Mg PO PRN Q6HRS PRN Fish Oil 1,200 mg Softgel ([place]-3S/Dha/Epa/Fish Oil) 1 Each Capsule.dr 1 Each PO DAILY Finasteride 5 Mg Tablet 5 Mg PO DAILY Colestipol Hcl 1 Gm Tablet 1 Gm PO BID Cetirizine Hcl 10 Mg Tablet 10 Mg PO DAILY Sinemet 25-100 Mg Tablet (Carbidopa/Levodopa) 1 Each Tablet 1 Each PO TID Albuterol Sulfate Conc Neb Soln (Albuterol Sulfate) 2.5 Mg/0.5 Ml Vial.neb 2.5 Mg NEB PRN Q4HRS PRN I have reviewed the current psychotropics carefully including drug interactions. Risk benefit ratio favors no change other than as noted in my dictated progress note. Diagnosis: Problems: (1) Anxiety disorder (2) Bipolar affective, mixed, sev w/ psych (3) Major depressive disorder, recurrent episode (4) Impulse control disorder (5) Lewy body dementia with behavioral disturbance ALONDRA BARNES MD Aug 23, 2018 22:28
--- NOTE | 2018-08-23 22:46 | PN ---
DATE: 08/22/2018 PSYCHIATRIC PROGRESS NOTE This late entry 08/22/2018 covers elements not covered in my initial note. SUBJECTIVE: I met with the patient in the evening. The patient slept 6-1/4 hours previous night. He has been somewhat sexually inappropriate at times, per nursing report, was asking nursing staff about how people perceive interracial relationships, talking about racially different female staff member at the intermediate. He ____ that he had an attraction to her until he found out she was already in a relationship. He slept 6-1/4 hours. We are still awaiting records from his past psychiatric treatments including lithium. We have inquired with his family and they are unsure why the lithium was stopped. His estimated GFR is 68. REVIEW OF SYSTEMS: Ambulation impaired, in wheelchair. No CV, , pulmonary, eye system symptoms on review. MENTAL STATUS EXAM: Oriented reasonably to place and situation. Speech coherent, abstraction fair, computation impaired at times, some pressured speech is evident. No suicidal or homicidal ideation. Attention span short. He remains a little anxious, obsessive. No suicidal or homicidal ideation. LABORATORY DATA: Reviewed. IMPRESSION: Unchanged from initial note. PLAN: No change from initial note, but we will go ahead and start lithium carbonate 300 mg p.o. at bedtime. Maintain Depakote for now, level therapeutic. Check CBC, CMP, lithium level in 3 days. MAN Ling BARNES MD DR: MANISH/jaleesa JOB#: [id number] / [id number]
[2018-08-24 05:51] VITALS: BP 121/81
[2018-08-24] MEDS: LEVOTHYROXINE 112 MCG TABLET PO SCH (06:24)
[2018-08-24] MEDS: lamoTRIgine 25 MG TABLET. PO SCH (07:22)
[2018-08-24] MEDS: lamoTRIgine 100 MG TABLET. PO SCH (07:22)
[2018-08-24] MEDS: OMEGA-3 FATTY ACIDS/FISH OIL 1,000 MG CAPSULE. PO SCH (07:23)
[2018-08-24] MEDS: CARBIDOPA/LEVODOPA 25/100MG TABLET PO SCH ×3 (07:23→19:45)
[2018-08-24] MEDS: TAMSULOSIN 0.4 MG CAP.ER.24H. PO SCH (07:23)
[2018-08-24] MEDS: DIVALPROEX SODIUM 250 MG TABLET.DR. PO SCH (07:23)
[2018-08-24] MEDS: PANTOPRAZOLE 40 MG TABLET. PO SCH (07:23)
[2018-08-24] MEDS: VITAMIN E 200 UNIT CAPSULE. PO SCH (07:23)
[2018-08-24] MEDS: FINASTERIDE 5 MG TABLET PO SCH (07:23)
[2018-08-24] MEDS: CETIRIZINE HCL 10 MG TABLET PO SCH (07:23)
[2018-08-24] MEDS: ASCORBIC ACID 500 MG TABLET PO SCH (07:23)
[2018-08-24] MEDS: CITALOPRAM 10 MG TABLET. PO SCH (07:23)
[2018-08-24] MEDS: COLESTIPOL HCL 1 GM TABLET PO SCH ×2 (07:24→19:48)
[2018-08-24] MEDS: PYRIDOXINE 50 MG TABLET. PO SCH (07:24)
[2018-08-24 11:07] LABS: WHITE BLOOD COUNT 47.4 x10^3/uL (4.0-11.0)
[2018-08-24 16:34] VITALS: BP 110/77
[2018-08-24] MEDS: SIMVASTATIN 40 MG TABLET. PO SCH (19:45)
[2018-08-24] MEDS: LITHIUM CARBONATE 300 MG TABLET PO SCH (19:45)
--- NOTE | 2018-08-24 22:32 | PDOC ---
Exam Note: Julian Note: Please also refer to the separate dictated note~for this date of service dictated separately.~Patient seen individually. Discussed the patient with Nursing staff reviewed the chart.~Reviewed interim history and current functioning. Reviewed vital signs,~Labs/ Radiology~and current medications noted below. Continue current treatment with the changes noted in the dictated addendum note Assessment: Vital Signs: Vital Signs Date Time Temp Pulse Resp B/P (MAP) Pulse Ox O2 Delivery O2 Flow Rate FiO2 08/24/18 20:57 95 Room Air 08/24/18 16:34 98.9 87 20 110/77 (88) I&O Intake and Output 08/24/18 07:00 Intake Total 940 ml Balance 940 ml Intake Oral 940 ml # Bowel Movements 1 Current Medications: Meds: Current Medications Acetaminophen (Tylenol) 650 mg PRN Q6HRS PRN PO PAIN / TEMP; Start 08/18/18 at 23:15 Al Hydroxide/Mg Hydroxide (Mylanta Plus Xs) 15 ml PRN AFTMEALHC PRN PO DYSPEPSIA; Start 08/18/18 at 23:15 Magnesium Hydroxide (Milk Of Magnesia) 2,400 mg PRN QHS PRN PO CONSTIPATION; Start 08/18/18 at 23:15 Carbidopa/Levodopa (Sinemet 25/100) 1 tab TID PO Last administered on at 19:45; Start 08/19/18 at 09:00 Lamotrigine (LaMICtal) 150 mg DAILY PO ; Start 08/19/18 at 09:00; Stop 08/19/18 at 09:14; Status DC Citalopram Hydrobromide (CeleXA) 10 mg DAILY PO Last administered on 08/24/18at 07:23; Start 08/19/18 at 09:00 Ascorbic Acid (Vitamin C) 500 mg DAILY PO Last administered on 08/24/18 07:23 ; Start 08/19/18 at 09:00 Colestipol HCl (Colestid) 1 gm BID PO Last administered on 08/24/18at 19:48; Start 08/19/18 at 09:00 Albuterol/ Ipratropium (Duoneb) 3 ml PRN TID PRN NEB SHORTNESS OF BREATH Last administered on 08/24/18at 20:55; Start 08/18/18 at 23:45 Levothyroxine Sodium (Synthroid) 112 mcg DAILY06 PO Last administered on 06:24; Start 08/19/18 at 06:00 Simvastatin (Zocor) 40 mg HS PO Last administered on 08/24/18 19:45; Start 08/19/18 at 21:00 Tamsulosin HCl (Flomax) 0.4 mg DAILY PO Last administered on 08/24/18 07:23; Start 08/19/18 at 09:00 Albuterol Sulfate (Ventolin) 2.5 mg PRN Q4HRS PRN NEB SHORTNESS OF BREATH; Start 08/18/18 at 23:45 Cetirizine HCl (ZyrTEC) 10 mg DAILY PO Last administered on 08/24/18 07:23; Start 08/19/18 at 09:00 Finasteride (Proscar) 5 mg DAILY PO Last administered on 08/24/18 07:23; Start 08/19/18 at 09:00 Guaifenesin (Robitussin Dm) 10 ml PRN Q4HRS PRN PO COUGH; Start 08/18/18 at 23: 45 Loperamide HCl (Imodium) 2 mg PRN Q6HRS PRN PO DIARRHEA; Start 08/18/18 at 23:45 Fish Oil (Fish Oil) 1,000 mg DAILY PO Last administered on 08/24/18 07:23; Start 08/19/18 at 09:00 Pantoprazole Sodium (Protonix) 40 mg DAILYAC PO Last administered on 08/24/18 07:23; Start 08/19/18 at 07:30 Ondansetron HCl (Zofran Odt) 4 mg PRN Q6HRS PRN PO NAUSEA/VOMITING; Start at 23:45 Pyridoxine HCl (Vitamin B-6) 50 mg DAILY PO Last administered on 08/24/18 07: 24; Start 08/19/18 at 09:00 Vitamin E 200 unit DAILY PO Last administered on 08/24/18 07:23; Start at 09:00 Divalproex Sodium (Depakote) 1,500 mg DAILY PO Last administered on 08/24/18 07:23; Start 08/19/18 at 09:00 Lamotrigine (LaMICtal) 100 mg DAILY PO Last administered on 08/24/18at 07:22; Start 08/20/18 at 09:00 Lamotrigine (LaMICtal) 50 mg DAILY PO Last administered on 08/24/18at 07:22; Start 08/19/18 at 09:15 Vitamin D (Vitamin D3) 50,000 unit WEEKLY PO Last administered on 08/19/18 19: 36; Start 08/19/18 at 19:30 [place] Carbonate 300 mg HS PO Last administered on 08/24/18at 19:45; Start 08/22 at 21:00 Fluvoxamine Maleate (Luvox) 25 mg QHS PO Last administered on 08/24/18 19:48; Start 08/24/18 at 21:00 Active Scripts Active Reported Vitamin E (Vitamin E Acetate) 200 Unit Capsule 200 Unit PO DAILY Ascorbic Acid 500 Mg Tablet 500 Mg PO DAILY Vitamin B-6 (Pyridoxine Hcl) 50 Mg Capsule 50 Mg PO DAILY Tylenol (Acetaminophen) 325 Mg Tablet 650 Mg PO PRN Q4HRS PRN Flomax (Tamsulosin Hcl) 0.4 Mg Cap.er.24h 0.4 Mg PO DAILY Simvastatin 40 Mg Tablet 40 Mg PO HS Robitussin Cough-Chest Dm Liq (Guaifenesin/Dextromethorphan) 237 Ml Liquid 10 Ml PO PRN Q4HRS PRN Ondansetron Odt (Ondansetron) 4 Mg Tab.rapdis 4 Mg PO PRN Q6HRS PRN Omeprazole 20 Mg Tablet.dr 20 Mg PO DAILY Milk Of Magnesia (Magnesium Hydroxide) 400 Mg/5 Ml Oral.susp 400 Mg PO PRN DAILY PRN Lexapro (Escitalopram Oxalate) 5 Mg Tablet 5 Mg PO DAILY Levothyroxine Sodium 112 Mcg Tablet 112 Mcg PO DAILYAC Lamotrigine 150 Mg Tablet 150 Mg PO DAILY Duoneb 0.5-3(2.5) Mg/3 Ml (Albuterol/Ipratropium) 3 Ml Ampul.neb 3 Mg NEB PRN TID PRN Imodium A-D (Loperamide HCl) 2 Mg Capsule 2 Mg PO PRN Q6HRS PRN Fish Oil 1,200 mg Softgel ([place]-3S/Dha/Epa/Fish Oil) 1 Each Capsule.dr 1 Each PO DAILY Finasteride 5 Mg Tablet 5 Mg PO DAILY Colestipol Hcl 1 Gm Tablet 1 Gm PO BID Cetirizine Hcl 10 Mg Tablet 10 Mg PO DAILY Sinemet 25-100 Mg Tablet (Carbidopa/Levodopa) 1 Each Tablet 1 Each PO TID Albuterol Sulfate Conc Neb Soln (Albuterol Sulfate) 2.5 Mg/0.5 Ml Vial.neb 2.5 Mg NEB PRN Q4HRS PRN I have reviewed the current psychotropics carefully including drug interactions. Risk benefit ratio favors no change other than as noted in my dictated progress note. Diagnosis: Problems: (1) Anxiety disorder (2) Bipolar affective, mixed, sev w/ psych (3) Major depressive disorder, recurrent episode (4) Impulse control disorder (5) Lewy body dementia with behavioral disturbance ALONDRA BARNES MD Aug 24, 2018 22:32
--- NOTE | 2018-08-25 04:00 | PN ---
DATE: 08/23/2018 This late entry for 08/23/2018 covers elements not covered in my initial note. SUBJECTIVE: I met with the patient in the evening. The patient slept 5-3/4 hours previous night. The patient remains somewhat obsessive regarding the bathroom, repetitive, anxious. REVIEW OF SYSTEMS: Ambulation impaired, in wheelchair. No CV, , pulmonary, eye system symptoms on review. MENTAL STATUS EXAM: Oriented reasonably. Speech is coherent, little pressured at times. Abstraction fair, computation impaired, language function intact, attention span short. Mood and affect remain somewhat anxious, labile. LABORATORY DATA: Reviewed. IMPRESSION: Unchanged from initial note. PLAN: No change from initial note. The lithium has been added as a mood stabilizer to the Depakote. MAN Ling BARNES MD DR: MANISH/jaleesa JOB#: [id number] / [id number]
[2018-08-25 05:51] VITALS: BP 117/74
[2018-08-25] MEDS: LEVOTHYROXINE 112 MCG TABLET PO SCH (06:03)
[2018-08-25 07:29] LABS: BASO # 0.1 x10^3/uL (0.0-0.2); BASO % 0 % (0-3); EOS # 0.5 x10^3/uL (0.0-0.7); EOS % 1 % (0-3); HEMOGLOBIN 15.4 g/dL (13.0-17.5); LYMPH # 31.5 x10^3/uL (1.0-4.8); LYMPH % 86 % (24-48); MEAN CORPUSCULAR HEMOGLOBIN 31 pg (25-35); MEAN CORPUSCULAR HGB CONC 33 g/dL (31-37); MEAN CORPUSCULAR VOLUME 95 fL (79-100); MONO # 0.9 x10^3/uL (0.0-1.1); MONO % 3 % (0-9); NEUT # 3.7 x10^3uL (1.8-7.7); NEUT % 10 % (31-73); PLATELET COUNT 133 x10^3/uL (140-400); RED BLOOD COUNT 4.94 x10^6/uL (4.30-5.70); RED CELL DISTRIBUTION WIDTH 14.9 % (11.5-14.5); WHITE BLOOD COUNT 36.7 x10^3/uL (4.0-11.0)
[2018-08-25 07:45] LABS: ALBUMIN 3.2 g/dL (3.4-5.0); ALBUMIN/GLOBULIN RATIO 1.2 (1.0-1.7); CALCIUM 9.1 mg/dL (8.5-10.1); CREATININE 1.2 mg/dL (0.7-1.3); GFR 61.6; POTASSIUM 4.7 mmol/L (3.5-5.1); TOTAL BILIRUBIN 0.4 mg/dL (0.2-1.0); TOTAL PROTEIN 5.9 g/dL (6.4-8.2)
[2018-08-25] MEDS: OMEGA-3 FATTY ACIDS/FISH OIL 1,000 MG CAPSULE. PO SCH (09:31)
[2018-08-25] MEDS: CETIRIZINE HCL 10 MG TABLET PO SCH (09:31)
[2018-08-25] MEDS: FINASTERIDE 5 MG TABLET PO SCH (09:32)
[2018-08-25] MEDS: lamoTRIgine 25 MG TABLET. PO SCH (09:32)
[2018-08-25] MEDS: CARBIDOPA/LEVODOPA 25/100MG TABLET PO SCH ×3 (09:32→19:42)
[2018-08-25] MEDS: PANTOPRAZOLE 40 MG TABLET. PO SCH (09:32)
[2018-08-25] MEDS: ASCORBIC ACID 500 MG TABLET PO SCH (09:32)
[2018-08-25] MEDS: lamoTRIgine 100 MG TABLET. PO SCH (09:32)
[2018-08-25] MEDS: CITALOPRAM 10 MG TABLET. PO SCH (09:33)
[2018-08-25] MEDS: VITAMIN E 200 UNIT CAPSULE. PO SCH (09:33)
[2018-08-25] MEDS: TAMSULOSIN 0.4 MG CAP.ER.24H. PO SCH (09:33)
[2018-08-25] MEDS: DIVALPROEX SODIUM 250 MG TABLET.DR. PO SCH (09:33)
[2018-08-25] MEDS: COLESTIPOL HCL 1 GM TABLET PO SCH ×2 (09:33→19:43)
[2018-08-25] MEDS: PYRIDOXINE 50 MG TABLET. PO SCH (09:33)
[2018-08-25 16:16] VITALS: BP 108/72
[2018-08-25] MEDS: LITHIUM CARBONATE 300 MG TABLET PO SCH (19:37)
[2018-08-25] MEDS: SIMVASTATIN 40 MG TABLET. PO SCH (19:42)
--- NOTE | 2018-08-25 22:39 | PDOC ---
Exam Note: Julian Note: Please also refer to the separate dictated note~for this date of service dictated separately.~Patient seen individually. Discussed the patient with Nursing staff reviewed the chart.~Reviewed interim history and current functioning. Reviewed vital signs,~Labs/ Radiology~and current medications noted below. Continue current treatment with the changes noted in the dictated addendum note Assessment: Vital Signs: Vital Signs Date Time Temp Pulse Resp B/P (MAP) Pulse Ox O2 Delivery O2 Flow Rate FiO2 08/25/18 16:16 98.6 77 16 108/72 (84) 96 08/24/18 20:57 Room Air I&O Intake and Output 08/25/18 07:00 Intake Total 840 ml Balance 840 ml Intake Oral 840 ml # Bowel Movements 1 Labs: Laboratory Tests Test 08/25/18 07:10 White Blood Count 36.7 x10^3/uL (4.0-11.0) H Red Blood Count 4.94 x10^6/uL (4.30-5.70) Hemoglobin 15.4 g/dL (13.0-17.5) Hematocrit 47.0 % (39.0-53.0) Mean Corpuscular Volume 95 fL (79-100) Mean Corpuscular Hemoglobin 31 pg (25-35) Mean Corpuscular Hemoglobin Concent 33 g/dL (31-37) Red Cell Distribution Width 14.9 % (11.5-14.5) H Platelet Count 133 x10^3/uL (140-400) L Neutrophils (%) (Auto) 10 % (31-73) L Lymphocytes (%) (Auto) 86 % (24-48) H Monocytes (%) (Auto) 3 % (0-9) Eosinophils (%) (Auto) 1 % (0-3) Basophils (%) (Auto) 0 % (0-3) Neutrophils # (Auto) 3.7 x10^3uL (1.8-7.7) Lymphocytes # (Auto) 31.5 x10^3/uL (1.0-4.8) H Monocytes # (Auto) 0.9 x10^3/uL (0.0-1.1) Eosinophils # (Auto) 0.5 x10^3/uL (0.0-0.7) Basophils # (Auto) 0.1 x10^3/uL (0.0-0.2) Sodium Level 146 mmol/L (136-145) H Potassium Level 4.7 mmol/L (3.5-5.1) Chloride Level 109 mmol/L (98-107) H Carbon Dioxide Level 33 mmol/L (21-32) H Anion Gap 4 (6-14) L Blood Urea Nitrogen 24 mg/dL (8-26) Creatinine 1.2 mg/dL (0.7-1.3) Estimated GFR (Cockcroft-Gault) 61.6 BUN/Creatinine Ratio 20 (6-20) Glucose Level 95 mg/dL (70-99) Calcium Level 9.1 mg/dL (8.5-10.1) Total Bilirubin 0.4 mg/dL (0.2-1.0) Aspartate Amino Transferase (AST) 8 U/L (15-37) L Alanine Aminotransferase (ALT) 15 U/L (16-63) L Alkaline Phosphatase 58 U/L (46-116) Total Protein 5.9 g/dL (6.4-8.2) L Albumin 3.2 g/dL (3.4-5.0) L Albumin/Globulin Ratio 1.2 (1.0-1.7) [place] Level 0.4 mmol/L (0.6-1.2) L [place] Last Dose Date 08/24/18 [place] Last Dose Time 2100 Current Medications: Meds: Current Medications Acetaminophen (Tylenol) 650 mg PRN Q6HRS PRN PO PAIN / TEMP; Start 08/18/18 at 23:15 Al Hydroxide/Mg Hydroxide (Mylanta Plus Xs) 15 ml PRN AFTMEALHC PRN PO DYSPEPSIA; Start 08/18/18 at 23:15 Magnesium Hydroxide (Milk Of Magnesia) 2,400 mg PRN QHS PRN PO CONSTIPATION; Start 08/18/18 at 23:15 Carbidopa/Levodopa (Sinemet 25/100) 1 tab TID PO Last administered on at 19:42; Start 08/19/18 at 09:00 Lamotrigine (LaMICtal) 150 mg DAILY PO ; Start 08/19/18 at 09:00; Stop 08/19/18 at 09:14; Status DC Citalopram Hydrobromide (CeleXA) 10 mg DAILY PO Last administered on 08/25/18 09:33; Start 08/19/18 at 09:00; Stop 08/25/18 at 11:22; Status DC Ascorbic Acid (Vitamin C) 500 mg DAILY PO Last administered on 08/25/18 09:32 ; Start 08/19/18 at 09:00 Colestipol HCl (Colestid) 1 gm BID PO Last administered on 08/25/18 19:43; Start 08/19/18 at 09:00 Albuterol/ Ipratropium (Duoneb) 3 ml PRN TID PRN NEB SHORTNESS OF BREATH Last administered on 08/24/18 20:55; Start 08/18/18 at 23:45 Levothyroxine Sodium (Synthroid) 112 mcg DAILY06 PO Last administered on 06:03; Start 08/19/18 at 06:00 Simvastatin (Zocor) 40 mg HS PO Last administered on 08/25/18 19:42; Start 08/19/18 at 21:00 Tamsulosin HCl (Flomax) 0.4 mg DAILY PO Last administered on 08/25/18 09:33; Start 08/19/18 at 09:00 Albuterol Sulfate (Ventolin) 2.5 mg PRN Q4HRS PRN NEB SHORTNESS OF BREATH; Start 08/18/18 at 23:45 Cetirizine HCl (ZyrTEC) 10 mg DAILY PO Last administered on 08/25/18 09:31; Start 08/19/18 at 09:00 Finasteride (Proscar) 5 mg DAILY PO Last administered on 08/25/18 09:32; Start 08/19/18 at 09:00 Guaifenesin (Robitussin Dm) 10 ml PRN Q4HRS PRN PO COUGH; Start 08/18/18 at 23: 45 Loperamide HCl (Imodium) 2 mg PRN Q6HRS PRN PO DIARRHEA; Start 08/18/18 at 23:45 Fish Oil (Fish Oil) 1,000 mg DAILY PO Last administered on 08/25/18 09:31; Start 08/19/18 at 09:00 Pantoprazole Sodium (Protonix) 40 mg DAILYAC PO Last administered on 08/25/18 09:32; Start 08/19/18 at 07:30 Ondansetron HCl (Zofran Odt) 4 mg PRN Q6HRS PRN PO NAUSEA/VOMITING; Start at 23:45 Pyridoxine HCl (Vitamin B-6) 50 mg DAILY PO Last administered on 08/25/18 09: 33; Start 08/19/18 at 09:00 Vitamin E 200 unit DAILY PO Last administered on 08/25/18 09:33; Start at 09:00 Divalproex Sodium (Depakote) 1,500 mg DAILY PO Last administered on 08/25/18 09:33; Start 08/19/18 at 09:00 Lamotrigine (LaMICtal) 100 mg DAILY PO Last administered on 08/25/18 09:32; Start 08/20/18 at 09:00 Lamotrigine (LaMICtal) 50 mg DAILY PO Last administered on 08/25/18 09:32; Start 08/19/18 at 09:15 Vitamin D (Vitamin D3) 50,000 unit WEEKLY PO Last administered on 08/19/18 19: 36; Start 08/19/18 at 19:30 [place] Carbonate 300 mg HS PO Last administered on 08/24/18 19:45; Start 08/22 at 21:00; Stop 08/25/18 at 18:25; Status DC Fluvoxamine Maleate (Luvox) 25 mg QHS PO Last administered on 08/25/18 19:41; Start 08/24/18 at 21:00 [place] Carbonate 450 mg HS PO Last administered on 08/25/18 19:37; Start 04/04 at 21:00 Active Scripts Active Reported Vitamin E (Vitamin E Acetate) 200 Unit Capsule 200 Unit PO DAILY Ascorbic Acid 500 Mg Tablet 500 Mg PO DAILY Vitamin B-6 (Pyridoxine Hcl) 50 Mg Capsule 50 Mg PO DAILY Tylenol (Acetaminophen) 325 Mg Tablet 650 Mg PO PRN Q4HRS PRN Flomax (Tamsulosin Hcl) 0.4 Mg Cap.er.24h 0.4 Mg PO DAILY Simvastatin 40 Mg Tablet 40 Mg PO HS Robitussin Cough-Chest Dm Liq (Guaifenesin/Dextromethorphan) 237 Ml Liquid 10 Ml PO PRN Q4HRS PRN Ondansetron Odt (Ondansetron) 4 Mg Tab.rapdis 4 Mg PO PRN Q6HRS PRN Omeprazole 20 Mg Tablet.dr 20 Mg PO DAILY Milk Of Magnesia (Magnesium Hydroxide) 400 Mg/5 Ml Oral.susp 400 Mg PO PRN DAILY PRN Lexapro (Escitalopram Oxalate) 5 Mg Tablet 5 Mg PO DAILY Levothyroxine Sodium 112 Mcg Tablet 112 Mcg PO DAILYAC Lamotrigine 150 Mg Tablet 150 Mg PO DAILY Duoneb 0.5-3(2.5) Mg/3 Ml (Albuterol/Ipratropium) 3 Ml Ampul.neb 3 Mg NEB PRN TID PRN Imodium A-D (Loperamide HCl) 2 Mg Capsule 2 Mg PO PRN Q6HRS PRN Fish Oil 1,200 mg Softgel ([place]-3S/Dha/Epa/Fish Oil) 1 Each Capsule.dr 1 Each PO DAILY Finasteride 5 Mg Tablet 5 Mg PO DAILY Colestipol Hcl 1 Gm Tablet 1 Gm PO BID Cetirizine Hcl 10 Mg Tablet 10 Mg PO DAILY Sinemet 25-100 Mg Tablet (Carbidopa/Levodopa) 1 Each Tablet 1 Each PO TID Albuterol Sulfate Conc Neb Soln (Albuterol Sulfate) 2.5 Mg/0.5 Ml Vial.neb 2.5 Mg NEB PRN Q4HRS PRN I have reviewed the current psychotropics carefully including drug interactions. Risk benefit ratio favors no change other than as noted in my dictated progress note. Diagnosis: Problems: (1) Anxiety disorder (2) Bipolar affective, mixed, sev w/ psych (3) Major depressive disorder, recurrent episode (4) Impulse control disorder (5) Lewy body dementia with behavioral disturbance ALONDRA BARNES MD Aug 25, 2018 22:39
[2018-08-26] MEDS: LEVOTHYROXINE 112 MCG TABLET PO SCH (05:29)
[2018-08-26 06:06] VITALS: BP 107/72
[2018-08-26] MEDS: ASCORBIC ACID 500 MG TABLET PO SCH (08:32)
[2018-08-26] MEDS: PANTOPRAZOLE 40 MG TABLET. PO SCH (08:32)
[2018-08-26] MEDS: OMEGA-3 FATTY ACIDS/FISH OIL 1,000 MG CAPSULE. PO SCH (08:33)
[2018-08-26] MEDS: DIVALPROEX SODIUM 250 MG TABLET.DR. PO SCH (08:33)
[2018-08-26] MEDS: COLESTIPOL HCL 1 GM TABLET PO SCH ×2 (08:33→19:28)
[2018-08-26] MEDS: lamoTRIgine 100 MG TABLET. PO SCH (08:34)
[2018-08-26] MEDS: TAMSULOSIN 0.4 MG CAP.ER.24H. PO SCH (08:34)
[2018-08-26] MEDS: lamoTRIgine 25 MG TABLET. PO SCH (08:34)
[2018-08-26] MEDS: CARBIDOPA/LEVODOPA 25/100MG TABLET PO SCH ×3 (08:35→19:23)
[2018-08-26] MEDS: FINASTERIDE 5 MG TABLET PO SCH (08:35)
[2018-08-26] MEDS: CETIRIZINE HCL 10 MG TABLET PO SCH (08:36)
[2018-08-26] MEDS: VITAMIN E 200 UNIT CAPSULE. PO SCH (08:36)
[2018-08-26] MEDS: CHOLECALCIFEROL (VITAMIN D3) 50,000 UNIT CAPSULE PO SCH (08:36)
[2018-08-26] MEDS: PYRIDOXINE 50 MG TABLET. PO SCH (08:36)
[2018-08-26] MEDS: ACETAMINOPHEN 325 MG TABLET PO PRN (10:41)
[2018-08-26 16:00] VITALS: BP 111/73
[2018-08-26] MEDS: SIMVASTATIN 40 MG TABLET. PO SCH (19:24)
[2018-08-26] MEDS: LITHIUM CARBONATE 300 MG TABLET PO SCH (19:24)
--- NOTE | 2018-08-26 22:39 | PDOC ---
Exam Note: Julian Note: Please also refer to the separate dictated note~for this date of service dictated separately.~Patient seen individually. Discussed the patient with Nursing staff reviewed the chart.~Reviewed interim history and current functioning. Reviewed vital signs,~Labs/ Radiology~and current medications noted below. Continue current treatment with the changes noted in the dictated addendum note Assessment: Vital Signs: Vital Signs Date Time Temp Pulse Resp B/P (MAP) Pulse Ox O2 Delivery O2 Flow Rate FiO2 08/26/18 16:00 97.4 68 18 111/73 (86) 98 08/26/18 06:06 Room Air I&O Intake and Output 08/26/18 07:00 Intake Total 960 ml Balance 960 ml Intake Oral 960 ml Current Medications: Meds: Current Medications Acetaminophen (Tylenol) 650 mg PRN Q6HRS PRN PO PAIN / TEMP Last administered on 08/26/18at 10:41; Start 08/18/18 at 23:15 Al Hydroxide/Mg Hydroxide (Mylanta Plus Xs) 15 ml PRN AFTMEALHC PRN PO DYSPEPSIA; Start 08/18/18 at 23:15 Magnesium Hydroxide (Milk Of Magnesia) 2,400 mg PRN QHS PRN PO CONSTIPATION; Start 08/18/18 at 23:15 Carbidopa/Levodopa (Sinemet 25/100) 1 tab TID PO Last administered on at 19:23; Start 08/19/18 at 09:00 Lamotrigine (LaMICtal) 150 mg DAILY PO ; Start 08/19/18 at 09:00; Stop 08/19/18 at 09:14; Status DC Citalopram Hydrobromide (CeleXA) 10 mg DAILY PO Last administered on 08/25/18at 09:33; Start 08/19/18 at 09:00; Stop 08/25/18 at 11:22; Status DC Ascorbic Acid (Vitamin C) 500 mg DAILY PO Last administered on 08/26/18at 08:32 ; Start 08/19/18 at 09:00 Colestipol HCl (Colestid) 1 gm BID PO Last administered on 08/26/18at 19:28; Start 08/19/18 at 09:00 Albuterol/ Ipratropium (Duoneb) 3 ml PRN TID PRN NEB SHORTNESS OF BREATH Last administered on 08/24/18 20:55; Start 08/18/18 at 23:45 Levothyroxine Sodium (Synthroid) 112 mcg DAILY06 PO Last administered on 05:29; Start 08/19/18 at 06:00 Simvastatin (Zocor) 40 mg HS PO Last administered on 08/26/18 19:24; Start 08/19/18 at 21:00 Tamsulosin HCl (Flomax) 0.4 mg DAILY PO Last administered on 08/26/18 08:34; Start 08/19/18 at 09:00 Albuterol Sulfate (Ventolin) 2.5 mg PRN Q4HRS PRN NEB SHORTNESS OF BREATH; Start 08/18/18 at 23:45 Cetirizine HCl (ZyrTEC) 10 mg DAILY PO Last administered on 08/26/18 08:36; Start 08/19/18 at 09:00 Finasteride (Proscar) 5 mg DAILY PO Last administered on 08/26/18 08:35; Start 08/19/18 at 09:00 Guaifenesin (Robitussin Dm) 10 ml PRN Q4HRS PRN PO COUGH; Start 08/18/18 at 23: 45 Loperamide HCl (Imodium) 2 mg PRN Q6HRS PRN PO DIARRHEA; Start 08/18/18 at 23:45 Fish Oil (Fish Oil) 1,000 mg DAILY PO Last administered on 08/26/18 08:33; Start 08/19/18 at 09:00 Pantoprazole Sodium (Protonix) 40 mg DAILYAC PO Last administered on 08/26/18 08:32; Start 08/19/18 at 07:30 Ondansetron HCl (Zofran Odt) 4 mg PRN Q6HRS PRN PO NAUSEA/VOMITING; Start at 23:45 Pyridoxine HCl (Vitamin B-6) 50 mg DAILY PO Last administered on 08/26/18 08: 36; Start 08/19/18 at 09:00 Vitamin E 200 unit DAILY PO Last administered on 08/26/18 08:36; Start at 09:00 Divalproex Sodium (Depakote) 1,500 mg DAILY PO Last administered on 08/26/18 08:33; Start 08/19/18 at 09:00 Lamotrigine (LaMICtal) 100 mg DAILY PO Last administered on 08/26/18 08:34; Start 08/20/18 at 09:00 Lamotrigine (LaMICtal) 50 mg DAILY PO Last administered on 08/26/18 08:34; Start 08/19/18 at 09:15 Vitamin D (Vitamin D3) 50,000 unit WEEKLY PO Last administered on 08/26/18 08: 36; Start 08/19/18 at 19:30 [place] Carbonate 300 mg HS PO Last administered on 08/24/18 19:45; Start 08/22 at 21:00; Stop 08/25/18 at 18:25; Status DC Fluvoxamine Maleate (Luvox) 25 mg QHS PO Last administered on 08/26/18 19:24; Start 08/24/18 at 21:00 [place] Carbonate 450 mg HS PO Last administered on 08/26/18 19:24; Start 04/04 at 21:00 Active Scripts Active Reported Vitamin E (Vitamin E Acetate) 200 Unit Capsule 200 Unit PO DAILY Ascorbic Acid 500 Mg Tablet 500 Mg PO DAILY Vitamin B-6 (Pyridoxine Hcl) 50 Mg Capsule 50 Mg PO DAILY Tylenol (Acetaminophen) 325 Mg Tablet 650 Mg PO PRN Q4HRS PRN Flomax (Tamsulosin Hcl) 0.4 Mg Cap.er.24h 0.4 Mg PO DAILY Simvastatin 40 Mg Tablet 40 Mg PO HS Robitussin Cough-Chest Dm Liq (Guaifenesin/Dextromethorphan) 237 Ml Liquid 10 Ml PO PRN Q4HRS PRN Ondansetron Odt (Ondansetron) 4 Mg Tab.rapdis 4 Mg PO PRN Q6HRS PRN Omeprazole 20 Mg Tablet.dr 20 Mg PO DAILY Milk Of Magnesia (Magnesium Hydroxide) 400 Mg/5 Ml Oral.susp 400 Mg PO PRN DAILY PRN Lexapro (Escitalopram Oxalate) 5 Mg Tablet 5 Mg PO DAILY Levothyroxine Sodium 112 Mcg Tablet 112 Mcg PO DAILYAC Lamotrigine 150 Mg Tablet 150 Mg PO DAILY Duoneb 0.5-3(2.5) Mg/3 Ml (Albuterol/Ipratropium) 3 Ml Ampul.neb 3 Mg NEB PRN TID PRN Imodium A-D (Loperamide HCl) 2 Mg Capsule 2 Mg PO PRN Q6HRS PRN Fish Oil 1,200 mg Softgel ([place]-3S/Dha/Epa/Fish Oil) 1 Each Capsule.dr 1 Each PO DAILY Finasteride 5 Mg Tablet 5 Mg PO DAILY Colestipol Hcl 1 Gm Tablet 1 Gm PO BID Cetirizine Hcl 10 Mg Tablet 10 Mg PO DAILY Sinemet 25-100 Mg Tablet (Carbidopa/Levodopa) 1 Each Tablet 1 Each PO TID Albuterol Sulfate Conc Neb Soln (Albuterol Sulfate) 2.5 Mg/0.5 Ml Vial.neb 2.5 Mg NEB PRN Q4HRS PRN I have reviewed the current psychotropics carefully including drug interactions. Risk benefit ratio favors no change other than as noted in my dictated progress note. Diagnosis: Problems: (1) Anxiety disorder (2) Bipolar affective, mixed, sev w/ psych (3) Major depressive disorder, recurrent episode (4) Impulse control disorder (5) Lewy body dementia with behavioral disturbance ALONDRA BARNES MD Aug 26, 2018 22:39
[2018-08-27] MEDS: LEVOTHYROXINE 112 MCG TABLET PO SCH (05:19)
[2018-08-27 06:15] VITALS: BP 112/71
[2018-08-27] MEDS: PANTOPRAZOLE 40 MG TABLET. PO SCH (08:07)
[2018-08-27] MEDS: VITAMIN E 200 UNIT CAPSULE. PO SCH (08:07)
[2018-08-27] MEDS: DIVALPROEX SODIUM 250 MG TABLET.DR. PO SCH (08:07)
[2018-08-27] MEDS: COLESTIPOL HCL 1 GM TABLET PO SCH ×2 (08:07→19:34)
[2018-08-27] MEDS: lamoTRIgine 100 MG TABLET. PO SCH (08:08)
[2018-08-27] MEDS: OMEGA-3 FATTY ACIDS/FISH OIL 1,000 MG CAPSULE. PO SCH (08:08)
[2018-08-27] MEDS: TAMSULOSIN 0.4 MG CAP.ER.24H. PO SCH (08:08)
[2018-08-27] MEDS: CARBIDOPA/LEVODOPA 25/100MG TABLET PO SCH ×3 (08:08→19:33)
[2018-08-27] MEDS: FINASTERIDE 5 MG TABLET PO SCH (08:08)
[2018-08-27] MEDS: lamoTRIgine 25 MG TABLET. PO SCH (08:08)
[2018-08-27] MEDS: CETIRIZINE HCL 10 MG TABLET PO SCH (08:09)
[2018-08-27] MEDS: PYRIDOXINE 50 MG TABLET. PO SCH (08:09)
[2018-08-27] MEDS: ASCORBIC ACID 500 MG TABLET PO SCH (08:09)
--- NOTE | 2018-08-27 15:23 | PN ---
DATE: 08/24/2018 PSYCHIATRIC PROGRESS NOTE This late entry for 08/24/2018 covers elements not covered in my initial note. SUBJECTIVE: I met with the patient at length in the evening. The patient slept 7-1/2 hours previous night. He has done better during the day, but obsessed about wanting the telephone calls and making telephone calls all day. He is also obsessed regarding the bathroom despite being on a 2-hour toileting schedule, he wants to go more frequently and then pulled the call light repeatedly. REVIEW OF SYSTEMS: Ambulation impaired, in wheelchair. No CV, , pulmonary, eye, ENT system symptoms on review. MENTAL STATUS EXAM: Oriented reasonably. Speech is coherent, abstraction fair, computation impaired, language function intact, attention span short. Mood and affect still somewhat anxious, labile. LABORATORY DATA: Reviewed. 1. IMPRESSION: Bipolar 1 disorder, mixed with psychotic features; anxiety disorder, unspecified, rest is unchanged. PLAN: Continue current psychotropics. p.o. at bedtime ____. MAN Ling BARNES MD DR: MANISH/jaleesa JOB#: [id number] / [id number]
[2018-08-27 15:53] VITALS: BP 108/67
[2018-08-27] MEDS: LITHIUM CARBONATE 300 MG TABLET PO SCH (19:33)
[2018-08-27] MEDS: SIMVASTATIN 40 MG TABLET. PO SCH (19:33)
--- NOTE | 2018-08-27 21:00 | PN ---
DATE: 08/25/2018 PSYCHIATRIC PROGRESS NOTE This late entry 08/25/2018 covers elements not covered in my initial note. SUBJECTIVE: I met with the patient at length in the evening and staffed at a treatment team meeting with the entire team in the morning and the patient's sister, Vickie, attended the lengthy treatment team meeting. We will request past psychiatric records from Dr. Monteiro, Neurology records from Dr. Henriquez at [facility]. We will have Dr. Rob, neurologist, at a facility consult regarding a questionable diagnosis of Parkinson's disease with the patient. He remains quite obsessive about the toileting schedule despite being on two hour toileting, wanting to go there every few minutes, pushing the call light. He has made inappropriate racial remarks. Compliant with medications. REVIEW OF SYSTEMS: Ambulation impaired, in wheelchair. No CV, , pulmonary, eye system symptoms on review. MENTAL STATUS EXAMINATION: Oriented to himself and situation. Speech is coherent, has some latency. Abstraction fair, computation impaired, language function intact. Mood and affect still somewhat anxious, labile, obsessive. LABORATORY DATA: Reviewed. IMPRESSION: Bipolar 1 disorder, mixed; obsessive-compulsive disorder; anxiety disorder, unspecified; possible early Lewy body dementia. PLAN: In addition to above, lithium level is 0.4 on 300 mg a day, we will increase lithium to 450 mg daily. Check CBC, CMP, lithium level in 3 days. Rest unchanged from initial note including Luvox 25 mg at bedtime for obsessive thought processes. MAN Ling BARNES MD DR: MANISH/jaleesa JOB#: [id number] / [id number]
--- NOTE | 2018-08-27 22:01 | PN ---
DATE: 08/26/2018 PSYCHIATRIC PROGRESS NOTE This late entry 08/26/2018 covers elements not covered in my initial note. SUBJECTIVE: I met with the patient in the morning. The patient slept 5-1/2 hours previous night. He complains of headaches, received some Tylenol, was better. He has been irritable, somewhat needy, anxious, repetitive, obsessive, especially about going to the bathroom, and even though he is on a 2-hour toileting schedule, he is wanting back therapy 15-20 minutes and then pushing the call light repeatedly. REVIEW OF SYSTEMS: Ambulation impaired, in wheelchair. No CV, , pulmonary, eye, ENT system symptoms on review. MENTAL STATUS EXAM: Reasonably oriented. Speech is coherent, has some latency. Abstraction fair, computation impaired, language function intact, attention span short. Mood and affect somewhat anxious, labile, obsessive. LABORATORY DATA: Reviewed. IMPRESSION: Bipolar 1 disorder, mixed with psychotic features; anxiety disorder, unspecified; symptoms of obsessive-compulsive disorder. PLAN: Continue current psychotropics. [place] has been increased. Remains on Depakote, lamotrigine, Luvox was initiated 25 mg at bedtime. We will keep it at a low dosage for his obsessive thought processes, but not enough to worsen his bipolar symptoms. MAN Ling BARNES MD DR: MANISH/jaleesa JOB#: [id number] / [id number]
[2018-08-28 05:40] VITALS: BP 135/81
[2018-08-28] MEDS: LEVOTHYROXINE 112 MCG TABLET PO SCH (06:11)
--- NOTE | 2018-08-28 06:24 | PN ---
DATE: 08/27/2018 SUBJECTIVE: The patient was seen today, met with the staff, chart reviewed and also covering for Dr. Livingston. The patient's behavior remains the same. The patient is unable to walk. He is sleeping better. The patient's behavior has improved slightly since he has been on lithium. The patient has some obsessive-compulsive behaviors, wanting to go to the bathroom constantly. OBSERVATION: VITAL SIGNS: Temperature 97.5, blood pressure 112/71, pulse 72, respirations 16, O2 sat 94%. GENERAL: Slept about 4 hours last night. The patient's appetite is fair. MEDICATIONS: The patient's medications are reviewed, currently on lithium carbonate 450 mg at night, fluvoxamine 25 mg at night, Lamictal 100 mg daily, also Lamictal 50 mg daily, Depakote 1500 mg daily. The patient is also on carbidopa/levodopa t.i.d. LABORATORY DATA: The patient's lab reviewed. The patient's white cell count was 36.7. The patient's sodium was 146. The patient's lithium level was 0.4. ASSESSMENT: Bipolar disorder type 1 with psychotic features, impulse control disorder, unspecified, and probable Lewy body dementia. PLAN: Plan is to continue with the treatment. LENGTH OF STAY: 7-10 days. LOAN RODRIGUEZ MD DR: BONITA/jaleesa JOB#: [id number] / [id number]
[2018-08-28] MEDS: VITAMIN E 200 UNIT CAPSULE. PO SCH (08:28)
[2018-08-28] MEDS: PANTOPRAZOLE 40 MG TABLET. PO SCH (08:28)
[2018-08-28] MEDS: COLESTIPOL HCL 1 GM TABLET PO SCH ×2 (08:28→21:00)
[2018-08-28] MEDS: DIVALPROEX SODIUM 250 MG TABLET.DR. PO SCH (08:29)
[2018-08-28] MEDS: OMEGA-3 FATTY ACIDS/FISH OIL 1,000 MG CAPSULE. PO SCH (08:29)
[2018-08-28] MEDS: lamoTRIgine 100 MG TABLET. PO SCH (08:29)
[2018-08-28] MEDS: lamoTRIgine 25 MG TABLET. PO SCH (08:29)
[2018-08-28] MEDS: TAMSULOSIN 0.4 MG CAP.ER.24H. PO SCH (08:29)
[2018-08-28] MEDS: CARBIDOPA/LEVODOPA 25/100MG TABLET PO SCH ×3 (08:30→19:48)
[2018-08-28] MEDS: ASCORBIC ACID 500 MG TABLET PO SCH (08:30)
[2018-08-28] MEDS: PYRIDOXINE 50 MG TABLET. PO SCH (08:30)
[2018-08-28] MEDS: CETIRIZINE HCL 10 MG TABLET PO SCH (08:30)
[2018-08-28] MEDS: FINASTERIDE 5 MG TABLET PO SCH (08:30)
[2018-08-28 10:09] LABS: BASO # 0.1 x10^3/uL (0.0-0.2); BASO % 0 % (0-3); EOS # 0.5 x10^3/uL (0.0-0.7); EOS % 1 % (0-3); HEMATOCRIT 50.6 % (39.0-53.0); HEMOGLOBIN 16.5 g/dL (13.0-17.5); LYMPH # 39.6 x10^3/uL (1.0-4.8); LYMPH % 86 % (24-48); MEAN CORPUSCULAR HEMOGLOBIN 31 pg (25-35); MEAN CORPUSCULAR HGB CONC 33 g/dL (31-37); MEAN CORPUSCULAR VOLUME 95 fL (79-100); MONO # 0.9 x10^3/uL (0.0-1.1); MONO % 2 % (0-9); NEUT # 4.8 x10^3uL (1.8-7.7); NEUT % 11 % (31-73); PLATELET COUNT 154 x10^3/uL (140-400); RED BLOOD COUNT 5.31 x10^6/uL (4.30-5.70); RED CELL DISTRIBUTION WIDTH 14.8 % (11.5-14.5)
[2018-08-28 10:15] LABS: WHITE BLOOD COUNT 45.9 x10^3/uL (4.0-11.0)
[2018-08-28 10:24] LABS: ALBUMIN 3.5 g/dL (3.4-5.0); ALBUMIN/GLOBULIN RATIO 1.1 (1.0-1.7); CALCIUM 9.6 mg/dL (8.5-10.1); CREATININE 1.1 mg/dL (0.7-1.3); GFR 68.1; POTASSIUM 4.3 mmol/L (3.5-5.1); TOTAL BILIRUBIN 0.4 mg/dL (0.2-1.0); TOTAL PROTEIN 6.6 g/dL (6.4-8.2)
[2018-08-28 11:07] LABS: % BANDS 0 % (0-9); % BASOS 0 % (0-3); % EOS 2 % (0-5); % LYMPHS 90 % (24-48); % MONOS 1 % (0-10); % SEGS 7 % (35-66); PLT ESTIMATE DECREASED (ADEQUATE); SMUDGE CELLS PRESENT
[2018-08-28 16:10] VITALS: BP 119/74
[2018-08-28] MEDS: LITHIUM CARBONATE 300 MG TABLET PO SCH (19:48)
[2018-08-28] MEDS: SIMVASTATIN 40 MG TABLET. PO SCH (19:48)
[2018-08-28] MEDS: MIRTAZAPINE 15 MG TABLET PO SCH (19:51)
--- NOTE | 2018-08-28 20:07 | PN ---
DATE: 08/28/2018 SUBJECTIVE: The patient was seen today, met with the staff, chart reviewed, also covering for Dr. Livingston. Staff reports no major problems. The patient apparently is not sleeping well at night. OBSERVATION: VITAL SIGNS: Temperature 98.5, blood pressure 135/81, pulse 73, respirations 20, O2 sat 95%. He slept about only 2 hours last night. Staff reports that patient has been exhibiting compulsive behaviors, wanting to be in the bathroom constantly. He has difficulty following directions at times. CURRENT MEDICATIONS: [place] carbonate 450 mg at night, fluvoxamine 25 mg at night, Lamictal 100 mg daily, also Lamictal 50 mg daily, Depakote 1500 mg daily. The patient is also on carbidopa/levodopa. The patient's lab reviewed. The patient's lithium level was 0.4. Sodium slightly elevated. ASSESSMENT: Bipolar disorder type 1 with psychotic features, impulse control disorder, unspecified and probable Lewy body dementia, and chronic lymphatic leukemia. PLAN: To continue with the treatment. LENGTH OF STAY: 7 days. LOAN RODRIGUEZ MD DR: BONITA/jaleesa JOB#: [id number] / [id number]
[2018-08-29] MEDS: LEVOTHYROXINE 112 MCG TABLET PO SCH (05:39)
[2018-08-29 06:00] VITALS: BP 114/78
[2018-08-29] MEDS: PANTOPRAZOLE 40 MG TABLET. PO SCH (08:01)
[2018-08-29] MEDS: COLESTIPOL HCL 1 GM TABLET PO SCH ×2 (08:04→19:30)
[2018-08-29] MEDS: DIVALPROEX SODIUM 250 MG TABLET.DR. PO SCH (08:04)
[2018-08-29] MEDS: OMEGA-3 FATTY ACIDS/FISH OIL 1,000 MG CAPSULE. PO SCH (08:04)
[2018-08-29] MEDS: VITAMIN E 200 UNIT CAPSULE. PO SCH (08:04)
[2018-08-29] MEDS: TAMSULOSIN 0.4 MG CAP.ER.24H. PO SCH (08:05)
[2018-08-29] MEDS: lamoTRIgine 25 MG TABLET. PO SCH (08:06)
[2018-08-29] MEDS: lamoTRIgine 100 MG TABLET. PO SCH (08:06)
[2018-08-29] MEDS: FINASTERIDE 5 MG TABLET PO SCH (08:09)
[2018-08-29] MEDS: PYRIDOXINE 50 MG TABLET. PO SCH (08:10)
[2018-08-29] MEDS: CARBIDOPA/LEVODOPA 25/100MG TABLET PO SCH ×3 (08:10→19:28)
[2018-08-29] MEDS: ASCORBIC ACID 500 MG TABLET PO SCH (08:11)
[2018-08-29] MEDS: CETIRIZINE HCL 10 MG TABLET PO SCH (08:11)
[2018-08-29 16:27] VITALS: BP 100/67
[2018-08-29] MEDS: LITHIUM CARBONATE 300 MG TABLET PO SCH (19:28)
[2018-08-29] MEDS: SIMVASTATIN 40 MG TABLET. PO SCH (19:29)
[2018-08-29] MEDS: MIRTAZAPINE 15 MG TABLET PO SCH (19:29)
--- NOTE | 2018-08-30 02:33 | PN ---
DATE: 08/29/2018 SUBJECTIVE: The patient was seen today, met with the staff, chart reviewed and also covering for Dr. Livingston. The patient has not presented with any major behavior problems. Staff reports no major incidents. The patient is compliant with the treatment. OBSERVATION: VITAL SIGNS: Temperature 97.5, blood pressure 114/78, pulse 59, respirations 20, O2 sat 91%. Slept about 7 hours last night. MEDICATIONS: Reviewed. Currently on mirtazapine 15 mg at night, lithium carbonate 450 mg at night, fluvoxamine 25 mg at night, Lamictal 100 mg daily, Lamictal 50 mg daily, Depakote 1500 mg daily. The patient is also on carbidopa/levodopa daily. The patient is not having any side effects. The patient's lab reviewed; Depakote level was 51. [place] level was 0.4. ASSESSMENT: Bipolar disorder type 1 with psychotic features, impulse control disorder, unspecified; probable Lewy body dementia and chronic lymphatic leukemia. PLAN: To continue with the treatment. The patient is planned for discharge in the next 2-3 days, to return to [facility]. LOAN RODRIGUEZ MD DR: BONITA/jaleesa JOB#: [id number] / [id number]
[2018-08-30 05:37] VITALS: BP 111/75
[2018-08-30] MEDS: LEVOTHYROXINE 112 MCG TABLET PO SCH (05:38)
[2018-08-30] MEDS: PANTOPRAZOLE 40 MG TABLET. PO SCH (05:56)
[2018-08-30] MEDS: COLESTIPOL HCL 1 GM TABLET PO SCH ×2 (05:57→19:19)
[2018-08-30] MEDS: OMEGA-3 FATTY ACIDS/FISH OIL 1,000 MG CAPSULE. PO SCH (05:57)
[2018-08-30] MEDS: DIVALPROEX SODIUM 250 MG TABLET.DR. PO SCH (05:57)
[2018-08-30] MEDS: lamoTRIgine 100 MG TABLET. PO SCH (05:58)
[2018-08-30] MEDS: ASCORBIC ACID 500 MG TABLET PO SCH (05:58)
[2018-08-30] MEDS: CARBIDOPA/LEVODOPA 25/100MG TABLET PO SCH ×3 (05:58→19:18)
[2018-08-30] MEDS: FINASTERIDE 5 MG TABLET PO SCH (05:58)
[2018-08-30] MEDS: TAMSULOSIN 0.4 MG CAP.ER.24H. PO SCH (05:58)
[2018-08-30] MEDS: lamoTRIgine 25 MG TABLET. PO SCH (05:58)
[2018-08-30] MEDS: VITAMIN E 200 UNIT CAPSULE. PO SCH (05:59)
[2018-08-30] MEDS: PYRIDOXINE 50 MG TABLET. PO SCH (05:59)
[2018-08-30] MEDS: CETIRIZINE HCL 10 MG TABLET PO SCH (05:59)
[2018-08-30 15:50] VITALS: BP 105/68
[2018-08-30] MEDS: LITHIUM CARBONATE 300 MG TABLET PO SCH (19:17)
[2018-08-30] MEDS: MIRTAZAPINE 15 MG TABLET PO SCH (19:18)
[2018-08-30] MEDS: SIMVASTATIN 40 MG TABLET. PO SCH (19:18)
--- NOTE | 2018-08-31 04:26 | PN ---
DATE: 08/30/2018 SUBJECTIVE: The patient was seen today, met with the staff, chart reviewed. Staff reports increased attention-seeking behaviors, very needy, tend to isolate himself. The patient is also on close observation. OBSERVATION: VITAL SIGNS: Temperature 97.7, blood pressure 111/75, pulse 65, respirations 16, O2 sat 95%. Slept about 7 hours last night. The patient's appetite is fair. LABORATORY DATA: The patient's lithium level was 0.4. CURRENT MEDICATIONS: Include mirtazapine 15 mg at night, lithium carbonate 450 mg at night, fluvoxamine 25 mg at night, Lamictal 100 mg daily, Lamictal 50 mg daily, Depakote 1500 mg daily. The patient is also on carbidopa/levodopa daily. The patient is not having any major side effects. 1. ASSESSMENT: Bipolar disorder type 1 with psychotic features, impulse control disorder, unspecified; probable Lewy body dementia and chronic lymphatic leukemia. PLAN: To continue with the treatment. The patient is planned for discharge this week. LOAN RODRIGUEZ MD DR: BONITA/jaleesa JOB#: [id number] / [id number]
[2018-08-31] MEDS: LEVOTHYROXINE 112 MCG TABLET PO SCH (05:39)
[2018-08-31 05:54] VITALS: BP 118/79
[2018-08-31] MEDS: PANTOPRAZOLE 40 MG TABLET. PO SCH (08:54)
[2018-08-31] MEDS: VITAMIN E 200 UNIT CAPSULE. PO SCH (08:59)
[2018-08-31] MEDS: COLESTIPOL HCL 1 GM TABLET PO SCH ×2 (08:59→19:14)
[2018-08-31] MEDS: lamoTRIgine 100 MG TABLET. PO SCH (09:01)
[2018-08-31] MEDS: DIVALPROEX SODIUM 250 MG TABLET.DR. PO SCH (09:01)
[2018-08-31] MEDS: TAMSULOSIN 0.4 MG CAP.ER.24H. PO SCH (09:01)
[2018-08-31] MEDS: OMEGA-3 FATTY ACIDS/FISH OIL 1,000 MG CAPSULE. PO SCH (09:01)
[2018-08-31] MEDS: lamoTRIgine 25 MG TABLET. PO SCH (09:01)
[2018-08-31] MEDS: PYRIDOXINE 50 MG TABLET. PO SCH (09:02)
[2018-08-31] MEDS: CETIRIZINE HCL 10 MG TABLET PO SCH (09:02)
[2018-08-31] MEDS: CARBIDOPA/LEVODOPA 25/100MG TABLET PO SCH ×3 (09:02→19:13)
[2018-08-31] MEDS: FINASTERIDE 5 MG TABLET PO SCH (09:02)
[2018-08-31] MEDS: ASCORBIC ACID 500 MG TABLET PO SCH (09:02)
[2018-08-31 16:19] VITALS: BP 114/76
[2018-08-31] MEDS: LITHIUM CARBONATE 300 MG TABLET PO SCH (19:13)
[2018-08-31] MEDS: SIMVASTATIN 40 MG TABLET. PO SCH (19:13)
[2018-08-31] MEDS: MIRTAZAPINE 15 MG TABLET PO SCH (19:13)
--- NOTE | 2018-09-01 03:57 | PN ---
DATE: 08/31/2018 SUBJECTIVE: The patient was seen today, met with the staff, chart reviewed and also covering for Dr. Livingston. Staff reports that the patient is constantly seeking attention, very needy and also tends to get irritable and vargas. Staff reports no major behavior problems today. OBSERVATION: VITAL SIGNS: Temperature 97.3, blood pressure 118/79, pulse 61, respirations 18, and O2 sat 94%. Slept about 6 hours last night. The patient's appetite is fair. MEDICATIONS: The patient is currently on lithium 450 mg at night, Depakote 1500 mg daily, Lamictal 150 mg daily, Luvox 25 mg at night, Remeron 15 mg at night, Sinemet 25 mg/100 mg t.i.d. The patient is not having any side effects to the medications. ASSESSMENT: 1. Bipolar disorder type 1 with psychotic features. 2. Impulse control disorder, unspecified. 3. Major neurocognitive disorder, most likely Lewy body dementia and also elevated white cell count. PLAN: To continue with the treatment. Plan for discharge next week. LOAN RODRIGUEZ MD DR: BONITA/jaleesa JOB#: [id number] / [id number]
[2018-09-01] MEDS: LEVOTHYROXINE 112 MCG TABLET PO SCH (05:36)
[2018-09-01 05:56] VITALS: BP 111/75
[2018-09-01] MEDS: lamoTRIgine 100 MG TABLET. PO SCH (08:01)
[2018-09-01] MEDS: PANTOPRAZOLE 40 MG TABLET. PO SCH (08:01)
[2018-09-01] MEDS: lamoTRIgine 25 MG TABLET. PO SCH (08:01)
[2018-09-01] MEDS: CARBIDOPA/LEVODOPA 25/100MG TABLET PO SCH ×3 (08:02→19:11)
[2018-09-01] MEDS: COLESTIPOL HCL 1 GM TABLET PO SCH ×2 (08:02→19:12)
[2018-09-01] MEDS: TAMSULOSIN 0.4 MG CAP.ER.24H. PO SCH (08:02)
[2018-09-01] MEDS: PYRIDOXINE 50 MG TABLET. PO SCH (08:02)
[2018-09-01] MEDS: ASCORBIC ACID 500 MG TABLET PO SCH (08:02)
[2018-09-01] MEDS: DIVALPROEX SODIUM 250 MG TABLET.DR. PO SCH (08:02)
[2018-09-01] MEDS: FINASTERIDE 5 MG TABLET PO SCH (08:02)
[2018-09-01] MEDS: VITAMIN E 200 UNIT CAPSULE. PO SCH (08:02)
[2018-09-01] MEDS: CETIRIZINE HCL 10 MG TABLET PO SCH (08:02)
[2018-09-01] MEDS: OMEGA-3 FATTY ACIDS/FISH OIL 1,000 MG CAPSULE. PO SCH (08:03)
[2018-09-01 16:01] VITALS: BP 120/82
[2018-09-01] MEDS: MIRTAZAPINE 15 MG TABLET PO SCH (19:11)
[2018-09-01] MEDS: SIMVASTATIN 40 MG TABLET. PO SCH (19:11)
[2018-09-01] MEDS: LITHIUM CARBONATE 300 MG TABLET PO SCH (19:11)
--- NOTE | 2018-09-02 01:13 | PN ---
DATE: 09/01/2018 SUBJECTIVE: The patient was seen today, met with the staff, chart reviewed. Staff reports no major behavior problems today. The patient tends to isolate himself, occasional outbursts of anger, some mood swings. OBSERVATION: VITAL SIGNS: Temperature 97.8, blood pressure 114/76, pulse 87, respirations 20, O2 sat 98%. The patient's appetite improved. Sleep fair. MEDICATIONS: The patient's current medications include lithium 450 mg at night, Depakote 1500 mg daily, Lamictal 150 mg daily, Luvox 25 mg at night, Remeron 15 mg at night, Sinemet 25 mg t.i.d. The patient is not presenting with any side effects, no major medical issues. ASSESSMENT: 1. 1. Bipolar disorder type 1 with psychotic features. 2. 2. Impulse control disorder, unspecified. 3. 3. Major neurocognitive disorder, most likely Lewy body dementia. PLAN: To continue with the treatment. LOAN RODRIGUEZ MD DR: BONITA/jaleesa JOB#: [id number] / [id number]
[2018-09-02] MEDS: LEVOTHYROXINE 112 MCG TABLET PO SCH (04:48)
[2018-09-02 05:45] VITALS: BP 97/62
[2018-09-02] MEDS: OMEGA-3 FATTY ACIDS/FISH OIL 1,000 MG CAPSULE. PO SCH (07:58)
[2018-09-02] MEDS: PANTOPRAZOLE 40 MG TABLET. PO SCH (07:58)
[2018-09-02] MEDS: CETIRIZINE HCL 10 MG TABLET PO SCH (07:58)
[2018-09-02] MEDS: PYRIDOXINE 50 MG TABLET. PO SCH (07:58)
[2018-09-02] MEDS: ASCORBIC ACID 500 MG TABLET PO SCH (07:58)
[2018-09-02] MEDS: TAMSULOSIN 0.4 MG CAP.ER.24H. PO SCH (07:58)
[2018-09-02] MEDS: lamoTRIgine 100 MG TABLET. PO SCH (07:59)
[2018-09-02] MEDS: DIVALPROEX SODIUM 250 MG TABLET.DR. PO SCH (07:59)
[2018-09-02] MEDS: FINASTERIDE 5 MG TABLET PO SCH (07:59)
[2018-09-02] MEDS: CARBIDOPA/LEVODOPA 25/100MG TABLET PO SCH ×3 (07:59→19:27)
[2018-09-02] MEDS: lamoTRIgine 25 MG TABLET. PO SCH (07:59)
[2018-09-02] MEDS: COLESTIPOL HCL 1 GM TABLET PO SCH ×2 (07:59→21:00)
[2018-09-02] MEDS: VITAMIN E 200 UNIT CAPSULE. PO SCH (07:59)
[2018-09-02] MEDS: CHOLECALCIFEROL (VITAMIN D3) 50,000 UNIT CAPSULE PO SCH (08:01)
[2018-09-02 13:50] LABS: BILIRUBIN,URINE NEG (NEG); CLARITY,URINE CLEAR; COLOR,URINE YELLOW; GLUCOSE,URINE NEG (NEG); NITRITE,URINE NEG (NEG); UROBILINOGEN,URINE 0.2 mg/dL (0.2 mg/dL)
[2018-09-02 13:51] LABS: BACTERIA,URINE 0 /HPF (0-FEW); RBC,URINE 0 /HPF (0-2); WBC,URINE RARE /HPF (0-4)
[2018-09-02 15:35] VITALS: BP 114/78
[2018-09-02] MEDS: MIRTAZAPINE 15 MG TABLET PO SCH (19:27)
[2018-09-02] MEDS: SIMVASTATIN 40 MG TABLET. PO SCH (19:27)
[2018-09-02] MEDS: LITHIUM CARBONATE 300 MG TABLET PO SCH (19:27)
[2018-09-03 05:05] VITALS: BP 115/78
[2018-09-03] MEDS: LEVOTHYROXINE 112 MCG TABLET PO SCH (06:00)
[2018-09-03 08:28] LABS: BASO % 0 % (0-3); EOS # 0.5 x10^3/uL (0.0-0.7); EOS % 2 % (0-3); HEMATOCRIT 47.9 % (39.0-53.0); HEMOGLOBIN 15.7 g/dL (13.0-17.5); LYMPH # 29.9 x10^3/uL (1.0-4.8); LYMPH % 85 % (24-48); MEAN CORPUSCULAR HEMOGLOBIN 31 pg (25-35); MEAN CORPUSCULAR HGB CONC 33 g/dL (31-37); MEAN CORPUSCULAR VOLUME 95 fL (79-100); MONO # 0.8 x10^3/uL (0.0-1.1); MONO % 2 % (0-9); NEUT # 3.9 x10^3uL (1.8-7.7); NEUT % 11 % (31-73); PLATELET COUNT 128 x10^3/uL (140-400); RED BLOOD COUNT 5.02 x10^6/uL (4.30-5.70); RED CELL DISTRIBUTION WIDTH 14.7 % (11.5-14.5); WHITE BLOOD COUNT 35.2 x10^3/uL (4.0-11.0)
[2018-09-03] MEDS: PANTOPRAZOLE 40 MG TABLET. PO SCH (08:39)
[2018-09-03] MEDS: VITAMIN E 200 UNIT CAPSULE. PO SCH (08:40)
[2018-09-03] MEDS: DIVALPROEX SODIUM 250 MG TABLET.DR. PO SCH (08:40)
[2018-09-03] MEDS: COLESTIPOL HCL 1 GM TABLET PO SCH ×2 (08:40→20:18)
[2018-09-03] MEDS: FINASTERIDE 5 MG TABLET PO SCH (08:41)
[2018-09-03] MEDS: OMEGA-3 FATTY ACIDS/FISH OIL 1,000 MG CAPSULE. PO SCH (08:41)
[2018-09-03] MEDS: lamoTRIgine 25 MG TABLET. PO SCH (08:41)
[2018-09-03] MEDS: lamoTRIgine 100 MG TABLET. PO SCH (08:41)
[2018-09-03] MEDS: TAMSULOSIN 0.4 MG CAP.ER.24H. PO SCH (08:41)
[2018-09-03] MEDS: PYRIDOXINE 50 MG TABLET. PO SCH (08:41)
[2018-09-03] MEDS: ASCORBIC ACID 500 MG TABLET PO SCH (08:41)
[2018-09-03] MEDS: CARBIDOPA/LEVODOPA 25/100MG TABLET PO SCH ×3 (08:41→20:18)
[2018-09-03] MEDS: CETIRIZINE HCL 10 MG TABLET PO SCH (08:41)
[2018-09-03 08:43] LABS: ALBUMIN 3.1 g/dL (3.4-5.0); ALBUMIN/GLOBULIN RATIO 1.1 (1.0-1.7); CALCIUM 9.2 mg/dL (8.5-10.1); CREATININE 1.2 mg/dL (0.7-1.3); GFR 61.6; POTASSIUM 4.3 mmol/L (3.5-5.1); TOTAL BILIRUBIN 0.4 mg/dL (0.2-1.0)
[2018-09-03 10:22] LABS: % ATYL 4 % (0-0); % BANDS 1 % (0-9); % EOS 4 % (0-5); % LYMPHS 79 % (24-48); % MONOS 2 % (0-10); % SEGS 10 % (35-66)
[2018-09-03 10:23] LABS: PLT ESTIMATE DECREASED (ADEQUATE); SMUDGE CELLS PRESENT
[2018-09-03] MEDS: ACETAMINOPHEN 325 MG TABLET PO PRN (11:10)
[2018-09-03 15:46] VITALS: BP 104/65
--- NOTE | 2018-09-03 17:39 | PN ---
DATE: 09/02/2018 SUBJECTIVE: The patient was seen today, met with the staff, chart reviewed. The patient is irritable, vargas, anxious and also confused. He tends to isolate himself; occasional outbursts of anger and some mood swings. OBSERVATION: VITAL SIGNS: Temperature 97.6, blood pressure is 96/62, pulse 67, respirations 20, O2 sat 90%. GENERAL: Slept about 7 hours last night. Appetite is fair. The patient also is getting anxious, obsessed. CURRENT MEDICATIONS: The patient's current medications include lithium 450 mg at night, Depakote 1500 mg daily, Lamictal 150 mg daily, Luvox 25 mg at night, Remeron 15 mg at night, Sinemet 25/100 mg t.i.d. The patient denies of any side effects. ASSESSMENT: 1. Bipolar disorder type 1 with psychotic features. 2. Impulse control disorder, unspecified. 3. Major neurocognitive disorder, most likely Lewy body dementia and also elevated white cell count. PLAN: Continue with the treatment. LENGTH OF STAY: 4-5 days. LOAN RODRIGUEZ MD DR: BONITA/jaleesa JOB#: [id number] / [id number]
[2018-09-03] MEDS: SIMVASTATIN 40 MG TABLET. PO SCH (20:17)
[2018-09-03] MEDS: LITHIUM CARBONATE 300 MG TABLET PO SCH (20:18)
[2018-09-03] MEDS: MIRTAZAPINE 15 MG TABLET PO SCH (20:18)
[2018-09-04] MEDS: LEVOTHYROXINE 112 MCG TABLET PO SCH (04:56)
[2018-09-04 05:50] VITALS: BP 117/78
[2018-09-04] MEDS: PANTOPRAZOLE 40 MG TABLET. PO SCH (08:11)
[2018-09-04] MEDS: lamoTRIgine 100 MG TABLET. PO SCH (08:12)
[2018-09-04] MEDS: lamoTRIgine 25 MG TABLET. PO SCH (08:12)
[2018-09-04] MEDS: DIVALPROEX SODIUM 250 MG TABLET.DR. PO SCH (08:12)
[2018-09-04] MEDS: COLESTIPOL HCL 1 GM TABLET PO SCH ×2 (08:12→19:52)
[2018-09-04] MEDS: VITAMIN E 200 UNIT CAPSULE. PO SCH (08:12)
[2018-09-04] MEDS: FINASTERIDE 5 MG TABLET PO SCH (08:12)
[2018-09-04] MEDS: OMEGA-3 FATTY ACIDS/FISH OIL 1,000 MG CAPSULE. PO SCH (08:12)
[2018-09-04] MEDS: TAMSULOSIN 0.4 MG CAP.ER.24H. PO SCH (08:12)
[2018-09-04] MEDS: CARBIDOPA/LEVODOPA 25/100MG TABLET PO SCH ×3 (08:13→19:48)
[2018-09-04] MEDS: PYRIDOXINE 50 MG TABLET. PO SCH (08:13)
[2018-09-04] MEDS: CETIRIZINE HCL 10 MG TABLET PO SCH (08:13)
[2018-09-04] MEDS: ASCORBIC ACID 500 MG TABLET PO SCH (08:13)
--- NOTE | 2018-09-04 11:07 | PN ---
DATE: 09/03/2018 SUBJECTIVE: The patient was seen today, met with the staff, chart reviewed. The patient continues to isolate himself, periods of depression, and also angry and mood swings. OBSERVATION: VITAL SIGNS: Temperature 97.8, blood pressure 115/78, pulse 65, respiration 18, O2 sat 92%. Slept about 6-1/2 hours last night. CURRENT MEDICATIONS: The patient's current medications include lithium 450 mg at night, Depakote 1500 mg daily, Lamictal 150 mg daily, Luvox 25 mg at night, Remeron 15 mg at night, Sinemet 25 mg t.i.d. The patient is not presenting with any major side effects. ASSESSMENT: 1. Bipolar disorder type 1 with psychotic features. 2. Impulse control disorder, unspecified. 3. Major neurocognitive disorder, most likely Lewy body dementia. PLAN: To continue with the treatment. LENGTH OF STAY: 7-10 days. LOAN RODRIGUEZ MD DR: BONITA/jaleesa JOB#: [id number] / [id number]
[2018-09-04 15:38] VITALS: BP 108/73
[2018-09-04] MEDS: MIRTAZAPINE 15 MG TABLET PO SCH (19:48)
[2018-09-04] MEDS: SIMVASTATIN 40 MG TABLET. PO SCH (19:48)
[2018-09-04] MEDS: LITHIUM CARBONATE 300 MG TABLET PO SCH (19:49)
[2018-09-04] MEDS: ACETAMINOPHEN 325 MG TABLET PO PRN (23:08)
[2018-09-05] MEDS ORDERED: CHOL500016 PO (01:12)
[2018-09-05] MEDS ORDERED: DIVA500T2 PO (01:13)
[2018-09-05] MEDS ORDERED: LITH450T16 PO (01:14)
[2018-09-05] MEDS ORDERED: MIRT15TA3 PO (01:15)
[2018-09-05] MEDS ORDERED: MAG355OR17 PO (01:15)
[2018-09-05] MEDS ORDERED: FLUV50TA2 PO (01:16)
--- NOTE | 2018-09-05 02:11 | PN ---
DATE: 09/04/2018 SUBJECTIVE: The patient was seen today, met with the staff. The patient apparently getting very anxious, restless, constantly complained of having problems with urination and urinating frequently and upset about that. The patient apparently planned for discharge tomorrow, but the patient beginning to present with a lot of medical issues, high level of anxiety, also irritable and vargas. OBSERVATION: VITAL SIGNS: Temperature 98, blood pressure 117/78, pulse 66, respirations 20, O2 sat 97%. Slept about 5 hours last night. The patient's appetite is fair. The patient is not having any other major side effects. MEDICATIONS: The patient's current medications include lithium 450 mg at night, Depakote 1500 mg daily, Lamictal 150 mg daily, Luvox 25 mg at night, Remeron 15 mg at night, Sinemet 25 mg t.i.d. The patient is not presenting with any side effects from medications. ASSESSMENT: 1. Bipolar disorder type 1 with psychotic features. 2. Impulse control disorder, unspecified. 3. Major neurocognitive disorder, most likely Lewy body disease. PLAN: To continue with the treatment. Length of stay 4-5 days. LOAN RODRIGUEZ MD DR: BONITA/jaleesa JOB#: [id number] / [id number]
[2018-09-05 05:47] VITALS: BP 114/70
[2018-09-05] MEDS: LEVOTHYROXINE 112 MCG TABLET PO SCH (06:06)
[2018-09-05] MEDS: VITAMIN E 200 UNIT CAPSULE. PO SCH (09:08)
[2018-09-05] MEDS: COLESTIPOL HCL 1 GM TABLET PO SCH (09:09)
[2018-09-05] MEDS: DIVALPROEX SODIUM 250 MG TABLET.DR. PO SCH (09:10)
[2018-09-05] MEDS: OMEGA-3 FATTY ACIDS/FISH OIL 1,000 MG CAPSULE. PO SCH (09:12)
[2018-09-05] MEDS: TAMSULOSIN 0.4 MG CAP.ER.24H. PO SCH (09:12)
[2018-09-05] MEDS: lamoTRIgine 25 MG TABLET. PO SCH (09:13)
[2018-09-05] MEDS: lamoTRIgine 100 MG TABLET. PO SCH (09:13)
[2018-09-05] MEDS: FINASTERIDE 5 MG TABLET PO SCH (09:14)
[2018-09-05] MEDS: PYRIDOXINE 50 MG TABLET. PO SCH (09:15)
[2018-09-05] MEDS: CARBIDOPA/LEVODOPA 25/100MG TABLET PO SCH ×2 (09:15→13:37)
[2018-09-05] MEDS: ASCORBIC ACID 500 MG TABLET PO SCH (09:16)
[2018-09-05] MEDS: CETIRIZINE HCL 10 MG TABLET PO SCH (09:16)
[2018-09-05] MEDS: PANTOPRAZOLE 40 MG TABLET. PO SCH (09:22)
--- NOTE | 2018-09-05 19:16 | PDOC ---
Exam Note: Julian Note: Please also refer to the separate dictated note~for this date of service dictated separately.~Patient seen individually. Discussed the patient with Nursing staff reviewed the chart.~Reviewed interim history and current functioning. Reviewed vital signs,~Labs/ Radiology~and current medications noted below. Continue current treatment with the changes noted in the dictated addendum note Assessment: Vital Signs: Vital Signs Date Time Temp Pulse Resp B/P (MAP) Pulse Ox O2 Delivery O2 Flow Rate FiO2 09/05/18 05:47 97.4 70 18 114/70 (85) 93 09/03/18 15:46 Room Air I&O Intake and Output 09/05/18 07:00 Intake Total 1080 ml Balance 1080 ml Intake Oral 1080 ml # Voids 1 # Bowel Movements 1 Current Medications: Meds: Current Medications Acetaminophen (Tylenol) 650 mg PRN Q6HRS PRN PO PAIN / TEMP Last administered on 09/04/18at 23:08; Start 08/18/18 at 23:15; Stop 09/05/18 at 15:54; Status DC Al Hydroxide/Mg Hydroxide (Mylanta Plus Xs) 15 ml PRN AFTMEALHC PRN PO DYSPEPSIA; Start 08/18/18 at 23:15; Stop 09/05/18 at 15:54; Status DC Magnesium Hydroxide (Milk Of Magnesia) 2,400 mg PRN QHS PRN PO CONSTIPATION; Start 08/18/18 at 23:15; Stop 09/05/18 at 15:54; Status DC Carbidopa/Levodopa (Sinemet 25/100) 1 tab TID PO Last administered on 09/05/18at 13:37; Start 08/19/18 at 09:00; Stop 09/05/18 at 15:54; Status DC Lamotrigine (LaMICtal) 150 mg DAILY PO ; Start 08/19/18 at 09:00; Stop 08/19/18 at 09:14; Status DC Citalopram Hydrobromide (CeleXA) 10 mg DAILY PO Last administered on 08/25/18at 09:33; Start 08/19/18 at 09:00; Stop 08/25/18 at 11:22; Status DC Ascorbic Acid (Vitamin C) 500 mg DAILY PO Last administered on 09/05/18at 09:16; Start 08/19/18 at 09:00; Stop 09/05/18 at 15:54; Status DC Colestipol HCl (Colestid) 1 gm BID PO Last administered on 09/05/18at 09:09; Start 08/19/18 at 09:00; Stop 09/05/18 at 15:54; Status DC Albuterol/ Ipratropium (Duoneb) 3 ml PRN TID PRN NEB SHORTNESS OF BREATH Last administered on 08/24/18at 20:55; Start 08/18/18 at 23:45; Stop 09/05/18 at 15:54; Status DC Levothyroxine Sodium (Synthroid) 112 mcg DAILY06 PO Last administered on 09/05/18at 06:06; Start 08/19/18 at 06:00; Stop 09/05/18 at 15:54; Status DC Simvastatin (Zocor) 40 mg HS PO Last administered on 09/04/18at 19:48; Start 08/19/18 at 21:00; Stop 09/05/18 at 15:54; Status DC Tamsulosin HCl (Flomax) 0.4 mg DAILY PO Last administered on 09/05/18at 09:12; Start 08/19/18 at 09:00; Stop 09/05/18 at 15:54; Status DC Albuterol Sulfate (Ventolin) 2.5 mg PRN Q4HRS PRN NEB SHORTNESS OF BREATH; Start 08/18/18 at 23:45; Stop 09/05/18 at 15:54; Status DC Cetirizine HCl (ZyrTEC) 10 mg DAILY PO Last administered on 09/05/18at 09:16; Start 08/19/18 at 09:00; Stop 09/05/18 at 15:54; Status DC Finasteride (Proscar) 5 mg DAILY PO Last administered on 09/05/18at 09:14; Start 08/19/18 at 09:00; Stop 09/05/18 at 15:54; Status DC Guaifenesin (Robitussin Dm) 10 ml PRN Q4HRS PRN PO COUGH; Start 08/18/18 at 23:45; Stop 09/05/18 at 15:54; Status DC Loperamide HCl (Imodium) 2 mg PRN Q6HRS PRN PO DIARRHEA; Start 08/18/18 at 23:45; Stop 09/05/18 at 15:54; Status DC Fish Oil (Fish Oil) 1,000 mg DAILY PO Last administered on 09/05/18 09:12; Start 08/19/18 at 09:00; Stop 09/05/18 at 15:54; Status DC Pantoprazole Sodium (Protonix) 40 mg DAILYAC PO Last administered on 09/05/18 09:22; Start 08/19/18 at 07:30; Stop 09/05/18 at 15:54; Status DC Ondansetron HCl (Zofran Odt) 4 mg PRN Q6HRS PRN PO NAUSEA/VOMITING; Start 08/18/18 at 23:45; Stop 09/05/18 at 15:54; Status DC Pyridoxine HCl (Vitamin B-6) 50 mg DAILY PO Last administered on 09/05/18 09:15; Start 08/19/18 at 09:00; Stop 09/05/18 at 15:54; Status DC Vitamin E 200 unit DAILY PO Last administered on 09/05/18 09:08; Start 08/19/18 at 09:00; Stop 09/05/18 at 15:54; Status DC Divalproex Sodium (Depakote) 1,500 mg DAILY PO Last administered on 09/05/18 09:10; Start 08/19/18 at 09:00; Stop 09/05/18 at 15:54; Status DC Lamotrigine (LaMICtal) 100 mg DAILY PO Last administered on 09/05/18 09:13; Start 08/20/18 at 09:00; Stop 09/05/18 at 15:54; Status DC Lamotrigine (LaMICtal) 50 mg DAILY PO Last administered on 09/05/18 09:13; Start 08/19/18 at 09:15; Stop 09/05/18 at 15:54; Status DC Vitamin D (Vitamin D3) 50,000 unit WEEKLY PO Last administered on 09/02/18 08:01; Start 08/19/18 at 19:30; Stop 09/05/18 at 15:54; Status DC Startup Carbonate 300 mg HS PO Last administered on 08/24/18 19:45; Start 08/22/18 at 21:00; Stop 08/25/18 at 18:25; Status DC Fluvoxamine Maleate (Luvox) 25 mg QHS PO Last administered on 09/04/18at 19:48; Start 08/24/18 at 21:00; Stop 09/05/18 at 15:54; Status DC Startup Carbonate 450 mg HS PO Last administered on 09/04/18at 19:49; Start 08/25/18 at 21:00; Stop 09/05/18 at 15:54; Status DC Mirtazapine (Remeron) 15 mg QHS PO Last administered on 09/04/18at 19:48; Start 08/28/18 at 21:00; Stop 09/05/18 at 15:54; Status DC Active Scripts Active Reported Fluvoxamine Maleate 50 Mg Tablet 25 Mg PO QHS Mirtazapine 15 Mg Tablet 15 Mg PO QHS Advanced Antacid Liquid (Mag Hydrox/Al Hydrox/Simeth) 355 Ml Oral.susp 15 Ml PO PRN AFTMEALHC PRN [place] Carbonate 450 Mg Tablet.er 450 Mg PO QHS Depakote (Divalproex Sodium) 500 Mg Tablet.dr 1,500 Mg PO DAILY Vitamin D3 (Cholecalciferol (Vitamin D3)) 5,000 Unit Tablet 50,000 Unit PO WEEKLY start date: 08/19/18 Vitamin E (Vitamin E Acetate) 200 Unit Capsule 200 Unit PO DAILY Ascorbic Acid 500 Mg Tablet 500 Mg PO DAILY Vitamin B-6 (Pyridoxine Hcl) 50 Mg Capsule 50 Mg PO DAILY Tylenol (Acetaminophen) 325 Mg Tablet 650 Mg PO PRN Q6HRS PRN Flomax (Tamsulosin Hcl) 0.4 Mg Cap.er.24h 0.4 Mg PO DAILY Simvastatin 40 Mg Tablet 40 Mg PO HS Robitussin Cough-Chest Dm Liq (Guaifenesin/Dextromethorphan) 237 Ml Liquid 10 Ml PO PRN Q4HRS PRN Ondansetron Odt (Ondansetron) 4 Mg Tab.rapdis 4 Mg PO PRN Q6HRS PRN Omeprazole 20 Mg Tablet.dr 20 Mg PO DAILY Milk Of Magnesia (Magnesium Hydroxide) 400 Mg/5 Ml Oral.susp 2,400 Mg PO PRN QHS PRN Levothyroxine Sodium 112 Mcg Tablet 112 Mcg PO DAILYAC Lamotrigine 150 Mg Tablet 150 Mg PO DAILY Duoneb 0.5-3(2.5) Mg/3 Ml (Albuterol/Ipratropium) 3 Ml Ampul.neb 3 Mg NEB PRN TID PRN Imodium A-D (Loperamide HCl) 2 Mg Capsule 2 Mg PO PRN Q6HRS PRN Fish Oil 1,200 mg Softgel ([place]-3S/Dha/Epa/Fish Oil) 1 Each Capsule.dr 1 Each PO DAILY Finasteride 5 Mg Tablet 5 Mg PO DAILY Colestipol Hcl 1 Gm Tablet 1 Gm PO BID Cetirizine Hcl 10 Mg Tablet 10 Mg PO DAILY Sinemet 25-100 Mg Tablet (Carbidopa/Levodopa) 1 Each Tablet 1 Each PO TID Albuterol Sulfate Conc Neb Soln (Albuterol Sulfate) 2.5 Mg/0.5 Ml Vial.neb 2.5 Mg NEB PRN Q4HRS PRN I have reviewed the current psychotropics carefully including drug interactions. Risk benefit ratio favors no change other than as noted in my dictated progress note. Diagnosis: Problems: (1) Lewy body dementia with behavioral disturbance (2) Impulse control disorder (3) Major depressive disorder, recurrent episode (4) Bipolar affective, mixed, sev w/ psych (5) Anxiety disorder ALONDRA BARNES MD Sep 05, 2018 19:16
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
== END 2018-09-05 15:45 | DRG 885 ==
LOC: ER 18:23 → GEROPSY 22:36
PROVIDERS: ADMIT Psychiatry & Neurology Psychiatry; ATTEND Psychiatry & Neurology Psychiatry
DX: F31.64 Bipolar disorder, current episode mixed, severe, with psychotic features (principal); C91.10 Chronic lymphocytic leukemia of B-cell type not having achieved remission; F01.51 Vascular dementia, unspecified severity, with behavioral disturbance; R45.851 Suicidal ideations; E11.9 Type 2 diabetes mellitus without complications; E03.9 Hypothyroidism, unspecified; E78.00 Pure hypercholesterolemia, unspecified; E78.5 Hyperlipidemia, unspecified; F31.75 Bipolar disorder, in partial remission, most recent episode depressed; K21.9 Gastro-esophageal reflux disease without esophagitis; F41.9 Anxiety disorder, unspecified; F42.9 Obsessive-compulsive disorder, unspecified; F63.9 Impulse disorder, unspecified; G31.83 Neurocognitive disorder with Lewy bodies; G72.41 Inclusion body myositis [IBM]; G47.00 Insomnia, unspecified; N40.0 Benign prostatic hyperplasia without lower urinary tract symptoms; Z79.899 Other long term (current) drug therapy; Z88.8 Allergy status to other drugs, medicaments and biological substances; Z82.49 Family history of ischemic heart disease and other diseases of the circulatory system
CPT/HCPCS: 36415; 71045; 80048; 80053; 80061; 80076; 80164; 80178; 80307; 81001; 82306; 82947; 83036; 83540; 83550; 83735; 84436; 84443; 84480; 85007; 85025; 86592; 87086; G0480; J7620; 99285-25